=== PATIENT | female | born 1945 | race Caucasian/White ===

== ENCOUNTER 2020-05-25 13:54 | Outpatient (REF) | payer MEDICARE, SELFPAY ==
--- NOTE | 2020-05-25 | MM_ITS ---
EXAMINATION: MM SCREENING DIGITAL BREAST TOMOSYNTHESIS, BILATERAL CLINICAL INFORMATION: Screening. Asymptomatic. Family history breast cancer (mother, age 60). Personal history benign left breast biopsy 2014. The lifetime risk of breast cancer based on the Tyrer-Cuzick Model is 7%. COMPARISON: Mammography: 02/12/2019, 02/02/2018, 08/09/2016 TECHNIQUE: Digital breast tomosynthesis is performed in both the craniocaudal and mediolateral oblique views along with computer-aided detection (CAD). Synthesized 2D images are generated from the tomosynthesis. FINDINGS: There are scattered areas of fibroglandular density (ACR BI-RADS breast composition Category b). There is biopsy clip marker left breast mid 3:00 position. Parenchymal pattern borders on predominantly fatty. There is no developing density or interval mass or architectural abnormality. There are scattered punctate and vascular calcifications in each breast. Some digital processing artifact is also seen central left breast on synthesized MLO view without correlate on tomography or grouped calcifications on CC projection. The axilla and skin contours are unremarkable. MM/MM tomosynthesis screening BI IMPRESSION: No significant changes from prior studies. ASSESSMENT: BI-RADS 2: Benign RECOMMENDATION: Routine annual mammography screening. This patient's information was entered into a reminder system with a target due date for their next mammogram.
== END 2020-05-25 13:55 | disposition home or self-care (01) ==
LOC: HO.MAMMO 13:54
PROVIDERS: Visit Provider Internal Medicine Geriatric Medicine
DX: Z12.31 Encounter for screening mammogram for malignant neoplasm of breast (principal)
CPT/HCPCS: 77063; 77067

== ENCOUNTER 2020-09-17 10:48 | Outpatient (REF) | payer MEDICARE, SELFPAY ==
--- NOTE | ~2020-09-17 | XR_ITS ---
EXAMINATION: XR HAND, RIGHT CLINICAL INFORMATION: Right hand pain COMPARISON: February 10, 2020 TECHNIQUE: PA, lateral, and oblique views of the right hand. FINDINGS: There is no evidence of acute fracture or dislocation of the right hand. No significant degenerative changes seen with joint spaces being maintained. No soft tissue swelling. No radiopaque foreign bodies. No erosive changes appreciated. XR/XR hand RT min 3V IMPRESSION: No significant bony abnormality of the right hand identified.
[2020-09-17 11:59] LABS: MANUAL DIFF FLAG NO
[2020-09-17 12:01] LABS: Basophils Absolute Auto 0.1 X10*3/uL (0.0-0.2); Basophils Percent Auto 0.8 % (0-2); Eosinophils Absolute Auto 0.1 X10*3/uL (0.0-0.4); Eosinophils Percent Auto 1.7 % (0-4); Hemoglobin 13.2 g/dl (12.0-16.0); Imm Gran Abs Auto 0.01 X10*3/uL (0.00-0.03); Imm Gran Pct Auto 0.2 % (0.0-0.4); Lymphocytes Absolute Auto 2.1 X10*3/uL (1.2-4.9); Mean Corpuscular Hemoglobin 30.1 pg (27.0-33.0); Mean Corpuscular Volume 91.3 fL (80-98); Mean Platelet Volume 9.9 fL (9.4-12.3); Monocytes Absolute Auto 0.5 X10*3/uL (0.1-1.2); Monocytes Percent Auto 8.3 % (2-11); Neutrophils Absolute Auto 3.6 X10*3/uL (2.0-8.3); Platelet Count 209 X10*3/uL (160-400); Red Blood Count 4.38 X10*6/uL (4.20-5.50); Red Cell Distribution Width 12.9 % (11.0-16.0); White Blood Count 6.4 X10*3/uL (4.8-10.8)
[2020-09-17 12:31] LABS: Alanine Aminotransferase 46 U/L (0-31); Albumin Level 4.5 g/dL (3.5-5.0); Alkaline Phosphatase 92 U/L (39-117); Anion Gap 14 (12-20); Aspartate Amino Transferase 37 U/L (5-31); Bilirubin Total 0.4 mg/dL (0.0-1.0); Blood Urea Nitrogen 25 mg/dL (9-16); C Reactive Protein 0.14 mg/dL (< or = 0.50); Calcium 8.8 mg/dL (8.4-10.2); Carbon Dioxide 27 mmol/L (22-29); Chloride 99 mmol/L (96-108); Estimated Glomerular Filt Rate 59; Glucose Random 148 mg/dL (60-115); Potassium 4.3 mmol/L (3.3-5.1); Sodium 136 mmol/L (135-145); Total Protein 7.4 g/dL (6.5-8.0)
[2020-09-17 12:48] LABS: Thyroid Stimulating Hormone 3.13 uIU/mL (0.32-4.0)
[2020-09-17 13:01] LABS: Rheumatoid Factor < 15.0 IU/mL (<15.0)
[2020-09-17 13:17] LABS: Erythrocyte Sedimentation Rate 16 MM/HR (0-20)
[2020-09-18 16:11] LABS: Cyclic Citrullinated Peptide <16 UNITS
== END 2020-09-17 10:49 | disposition home or self-care (01) ==
LOC: HO.LAB 10:48
PROVIDERS: PCP Internal Medicine Geriatric Medicine; Visit Provider Student in an Organized Health Care Education/Training Program
DX: M79.641 Pain in right hand (principal)
CPT/HCPCS: 36415; 73130; 80053; 84443; 85025; 85652; 86140; 86200; 86431; 99202

== ENCOUNTER → 2020-12-17 13:29 | Outpatient (BNVA) | payer MEDICARE, SELFPAY | PROVIDERS: PCP Internal Medicine Geriatric Medicine; Visit Provider Student in an Organized Health Care Education/Training Program | DX: M79.641 Pain in right hand (principal); Z79.899 Other long term (current) drug therapy | CPT/HCPCS: 99212 ==

== ENCOUNTER 2023-02-16 | Outpatient (REF) | payer MEDICARE, SELFPAY | END 2023-02-16 00:01 | disposition home or self-care (01) | LOC: HO.LNP | PROVIDERS: Visit Provider Student in an Organized Health Care Education/Training Program | DX: R19.5 Other fecal abnormalities (principal) | CPT/HCPCS: 82274 ==

== ENCOUNTER 2023-03-23 12:41 | Outpatient (REF) | payer OTHER, SELFPAY ==
--- NOTE | ~2023-03-23 | CT_ITS ---
EXAMINATION: CT ABDOMEN AND PELVIS WITH CONTRAST CLINICAL INFORMATION: Blood in stools. COMPARISON: None available. TECHNIQUE: Multidetector volumetric images were obtained from the superior aspect of the liver through the pubic symphysis following administration 85 mL of Omnipaque 350 intravenous contrast. Sagittal and coronal reformatted images were obtained on the technologist's workstation. Oral contrast: Yes This CT examination was performed using dose optimization techniques as appropriate, variously including the following: *Automated exposure control *Adjustment of mA and/or kV according to patient size (this includes techniques or standardized protocols for targeted exams where dose is matched to indication/reason for exam; i.e. extremities or head) *Use of iterative reconstruction technique DLP: 413 mGy-cm FINDINGS: LUNG BASES: The visualized lung bases are unremarkable. LIVER, GALLBLADDER, AND BILIARY TREE: Steatotic liver. No liver mass or intrahepatic ductal dilatation. Cholecystectomy with compensatory dilation of the common bile duct. No choledocholithiasis seen. PANCREAS: No discrete pancreatic mass. No ductal dilatation. SPLEEN: Unremarkable. ADRENAL GLANDS: No adrenal mass. KIDNEYS AND URETERS: The kidneys are normal in size, shape, and attenuation. No hydronephrosis, hydroureter, or calculi seen. No perinephric stranding. There is a simple exophytic cyst from the lower pole left kidney. No follow-up imaging is recommended. BLADDER: Unremarkable. GASTROINTESTINAL TRACT: The small bowel is normal in caliber. No focal bowel wall thickening. No mesenteric mass or fluid. The appendix appears normal. The large bowel is normal in caliber. There is no focal bowel wall thickening. No diverticular disease demonstrated. No discrete bowel mass. ABDOMINAL WALL: No significant hernia is appreciated. LYMPH NODES: No adenopathy. VASCULAR: Mild atherosclerosis. No aortic aneurysm. PELVIC VISCERA: Unremarkable. OSSEOUS STRUCTURES: Mild degenerative changes in the spine. CT/CT abdomen pelvis w IV con IMPRESSION: No explanation for blood in stool. Recommend GI referral for consideration of endoscopy and colonoscopy. Fleischner guidelines were followed.
[2023-03-23] MEDS: iohexoL 350 MG/ML 100 ML INFUS..BTL IV (15:01)
[2023-03-23] MEDS: Barium Sulfate Oral (Mocha) 450 ML ORAL.SUSP 900 ML PO (15:39)
== END 2023-03-23 12:42 | disposition home or self-care (01) ==
LOC: HO.CT 12:41
PROVIDERS: PCP Internal Medicine Geriatric Medicine; Visit Provider Student in an Organized Health Care Education/Training Program
DX: R19.5 Other fecal abnormalities (principal)
CPT/HCPCS: 74177; Q9967

== ENCOUNTER 2023-05-30 09:36 | Outpatient (REF) | payer OTHER, SELFPAY ==
[2023-05-30 11:49] LABS: Anion Gap 17 (12-20); Blood Urea Nitrogen 18 mg/dL (9-16); Calcium 9.9 mg/dL (8.4-10.2); Carbon Dioxide 24 mmol/L (22-29); Chloride 101 mmol/L (96-108); Estimated Glomerular Filt Rate 54; Glucose Random 171 mg/dL (60-115); Potassium 3.8 mmol/L (3.3-5.1); Sodium 138 mmol/L (135-145)
== END 2023-05-30 09:37 | disposition home or self-care (01) ==
LOC: HO.HHCL 09:36
PROVIDERS: Visit Provider Internal Medicine Geriatric Medicine
DX: E11.69 Type 2 diabetes mellitus with other specified complication (principal); K57.33 Diverticulitis of large intestine without perforation or abscess with bleeding; I10 Essential (primary) hypertension
CPT/HCPCS: 36415; 80048

== ENCOUNTER 2024-01-01 10:28 | Outpatient (REF) | payer OTHER, SELFPAY ==
[2024-01-01 12:34] LABS: Alanine Aminotransferase 50 U/L (0-31); Albumin Level 4.1 g/dL (3.5-5.0); Alkaline Phosphatase 123 U/L (39-117); Anion Gap 12 (12-20); Aspartate Amino Transferase 36 U/L (5-31); Bilirubin Total 0.2 mg/dL (0.0-1.0); Blood Urea Nitrogen 19 mg/dL (9-16); Calcium 9.6 mg/dL (8.4-10.2); Carbon Dioxide 28 mmol/L (22-29); Chloride 104 mmol/L (96-108); Cholesterol 141 mg/dL (<200); Estimated Glomerular Filt Rate 55; Glucose Random 181 mg/dL (60-115); HDL Cholesterol 51 mg/dL (>40); LDL Cholesterol Calculated 77 mg/dL (<100); Potassium 4.2 mmol/L (3.3-5.1); Sodium 140 mmol/L (135-145); Total Protein 7.4 g/dL (6.5-8.0); Triglycerides 67 mg/dL (<150)
[2024-01-01 12:38] LABS: Reflex LDLD? No
[2024-01-01 12:40] LABS: TSH reflex Free T4 3.33 uIU/mL (0.32-4.0); Vitamin D 25-OH Total 43.5 ng/mL (>30)
== END 2024-01-01 10:29 | disposition home or self-care (01) ==
LOC: HO.HHCL 10:28
PROVIDERS: Visit Provider Internal Medicine
DX: E11.69 Type 2 diabetes mellitus with other specified complication (principal); Z91.89 Other specified personal risk factors, not elsewhere classified
CPT/HCPCS: 36415; 80053; 80061; 82306; 84443

== ENCOUNTER 2024-02-26 11:13 | Outpatient (REF) | payer OTHER, SELFPAY ==
[2024-02-26 14:07] LABS: Alanine Aminotransferase 70 U/L (0-31); Albumin Level 4.4 g/dL (3.5-5.0); Alkaline Phosphatase 98 U/L (39-117); Aspartate Amino Transferase 50 U/L (5-31); Bilirubin Direct 0.1 mg/dL (0.0-0.5); Bilirubin Total 0.3 mg/dL (0.0-1.0); Total Protein 7.9 g/dL (6.5-8.0)
[2024-02-27 04:32] LABS: HBS Num1 0.66 mIU/mL (0-7.99); HBsAGNum1 0.29 S/CO (0.00-0.99); Hepatitis B Surface Antigen Negative (Negative); ~HepC Num1 0.11 S/CO (0.00-0.79); ~Hepatitis B Surface Antibody NONREACTIVE (Nonreactive); ~Hepatitis C Antibody Nonreactive (Nonreactive)
[2024-02-27 04:36] LABS: Hepatitis A Antibody IgG REACTIVE (Nonreactive); ~Hepatitis A Antibody IgG 11.49 S/CO (0.00-0.99)
== END 2024-02-26 11:14 | disposition home or self-care (01) ==
LOC: HO.HHCL 11:13
PROVIDERS: Visit Provider Internal Medicine Geriatric Medicine
DX: E11.69 Type 2 diabetes mellitus with other specified complication (principal); F41.9 Anxiety disorder, unspecified; R74.01 Elevation of levels of liver transaminase levels
CPT/HCPCS: 36415; 80076; 86706; 86708; 86803; 87340

== ENCOUNTER 2024-09-30 10:39 | Outpatient (REF) | payer OTHER, SELFPAY ==
[2024-09-30 11:43] LABS: MANUAL DIFF FLAG NO
[2024-09-30 11:52] LABS: Basophils Absolute Auto 0.1 X10*3/uL (0.0-0.2); Basophils Percent Auto 1.1 % (0-2); Eosinophils Absolute Auto 0.2 X10*3/uL (0.0-0.4); Hematocrit 38.2 % (37.0-47.0); Hemoglobin 12.5 g/dl (12.0-16.0); Imm Gran Abs Auto 0.02 X10*3/uL (0.00-0.03); Imm Gran Pct Auto 0.4 % (0.0-0.4); Lymphocytes Absolute Auto 2.1 X10*3/uL (1.2-4.9); Lymphocytes Percent Auto 37.1 % (20-40); Mean Corpuscular HGB Conc 32.7 g/dl (31.0-35.0); Mean Corpuscular Hemoglobin 30.9 pg (27.0-33.0); Mean Corpuscular Volume 94.6 fL (80.0-98.0); Mean Platelet Volume 10.1 fL (9.4-12.3); Monocytes Absolute Auto 0.5 X10*3/uL (0.1-1.2); Monocytes Percent Auto 9.3 % (2-11); Neutrophils Absolute Auto 2.7 x10*3/uL (2.0-8.3); Neutrophils Percent Auto 48.1 % (45-73); Platelet Count 207 X10*3/uL (160-400); Red Blood Count 4.04 X10*6/uL (4.20-5.50); Red Cell Distribution Width 12.7 % (11.0-16.0); White Blood Count 5.7 X10*3/uL (4.8-10.8)
[2024-09-30 12:09] LABS: Alanine Aminotransferase 57 U/L (0-31); Albumin Level 3.9 g/dL (3.5-5.0); Alkaline Phosphatase 94 U/L (39-117); Anion Gap 15 (12-20); Aspartate Amino Transferase 40 U/L (5-31); Bilirubin Total 0.3 mg/dL (0.0-1.0); Blood Urea Nitrogen 23 mg/dL (9-16); Calcium 8.8 mg/dL (8.4-10.2); Carbon Dioxide 25 mmol/L (22-29); Chloride 105 mmol/L (96-108); Cholesterol 140 mg/dL (<200); Estimated Glomerular Filt Rate 56; Glucose Random 161 mg/dL (60-115); HDL Cholesterol 48 mg/dL (>40); LDL Cholesterol Calculated 73 mg/dL (<100); Potassium 4.1 mmol/L (3.3-5.1); Sodium 141 mmol/L (135-145); Total Protein 7.2 g/dL (6.5-8.0); Triglycerides 97 mg/dL (<150)
[2024-09-30 12:23] LABS: Microalbum/Creatinine Ratio Ur 6.2 ug/mg cr (<30)
--- OUTSIDE RECORDS SUMMARY | 2024-09-30 12:28 | XMS_ITS ---
Author Name MS. Prisca Berman APRN Address [address] [place] [address] Phone [phone] [facility] Care Team Providers Care Chemical Research Worker Name Role Phone Jennifer Berman Unavailable [phone] Unavailable Unavailable Unavailable Reason for Referral Not Available Allergies, adverse reactions, alerts No known allergies History of medication use Medication Class Instructions Start Date End Date Vitamin D3 25 MCG (1000 UT) Tab No Data Available 2022-12-28 No Data Available Diclofenac Sodium 1 % Gel No Data Available 2023-01-10 No Data Available Meclizine 25 mg Tab No Data Available 2023-02-03 No Data Available Amoxicillin-Pot Clavulanate 875/125 mg Tab TAKE 1 TABLET BY MOUTH TWICE DAILY FOR 7 DAYS 2023-02-16 No Data Available Omeprazole 40 mg Cap delayed rel No Data Available 2023-04-28 No Data Available Losartan Potassium-HCTZ 100/25 mg Tab No Data Available 2023-04-28 No Data Available Trulicity 3 mg/0.5ML Solution Pen-injector Subcutaneous 3 mg subcutaneously once per week 2023-06-15 No Data Available metFORMIN 1000 mg Tab 1 tablet orally twice daily 2022 No Data Available Glucerna Shake - One serving twice per day. 2023-06-15 No Data Available Tylenol Extra Strength 500 mg Tab 2 tablets orally one time TID PRN pain 2023-06-15 No Data Available Fish Oil 1000 mg Cap 1 capsule by mouth daily No Data Available Problem List Problem Status Onset Date Resolved Date Vertigo Active 2023-06-14 N/A GERD (gastroesophageal reflux disease) Active 22-06-15 N/A Type 2 diabetes mellitus wit h diabetic peripheral angiopathy without gangrene; Type 2 diabetes mellitus with hyperglycemia Active 2023-06-14 N/A Essential hypertension Active 2023-06-14 N/A Major depression in remission Active 2023-06-14 N/A Osteoarthritis Active 2023-06-15 N/A Encounters Encounters Type Facility Date of Service Diagnosis/Co mplaint No Data Available [facility] [place] 06[facility]/2023 Type 2 diabetes w diabetic peripheral angiopath w/o gangreneType 2 diabetes mellitus with hyperglycemiaEssential (primary) hypertensionDizziness and giddinessGastro-esophageal reflux disease without esophagitisMajor depressive disorder, single episode, in full remissionUnspecified osteoarthritis, unspecified siteLow back pain, unspecifiedOther chronic pain No Data Available [facility] [place] 06/15/2023 No Data Available [facility] [place]/15[place]2023 No Data Available [facility] [place] 06/15/2023 No Data Available [facility] [place]/15[place]2023 No Data Available [facility] [place] 06/[place]2023 No Data Available [facility] [place]/15[place]2023 No Data Available [facility] [place] 06/15[place]2023 No Data Available [facility] [place] 06/15/2023 Estab. patient 20-29min; 1 stable chronic or 2 minor; add add modifier 95 for video, modifier 93 for phone [facility] [place] 06[place]26/2023 Type 2 diabetes w diabetic peripheral angiopath w/o gangreneType 2 diabetes mellitus with hyperglycemiaEssential (primary) hypertensionDizziness and giddinessGastro-esophageal reflux disease without esophagitisMajor depressive disorder, single episode, in full remissionUnspecified osteoarthritis, unspecified siteLow back pain, unspecifiedOther chronic pain Estab. patient 20-29min; 1 stable chronic or 2 minor; add add modifier 95 for video, modifier 93 for phone [facility] [place] 06/26/2023 Estab. patient 20-29min; 1 stable chronic or 2 minor; add add modifier 95 for video, modifier 93 for phone [facility] [place] 06/26/2023 Estab. patient 20-29min; 1 stable chronic or 2 minor; add add modifier 95 for video, modifier [address] [facility], ([place]) 06/26/2023 Estab. patient 20-29min; 1 stable chronic or 2 minor; add add modifier 95 for video, modifier [address] [facility], ([place]) 06/26/2023 Vital Signs Date of Collection Vitals 2023-06-15 06:17:44 Height - 152.4 cmWei ght - 54.43 kgBody Mass Index (BMI) - 23.44 kg/m2 2023-06-26 08:34:20 Weight - 54.43 kgBod y Mass Index (BMI) - 23.44 kg/m2Pain Scale - 3.0 {score} Social History Social History Social History Observation Description Effec tive Time Current Smoking Status Never smoker 3 Sex Female History of Procedures Procedures Service Procedure code Service date Servicing provider Phone# No Data Available [id number] 2023-06-15 No Data Available No Data Available Pain Assessment - NO pain present (1126F) 1126F 2023-06-15 No Data Available No Data A vailable Medication List Documented (1159F) 1159F 2023-06-15 No Data Available No Data Valerie ilable Medication Review by prescribing provider or pharmacist documented (1160F) 1160F 2023-06-15 No Data Available No Data Valerie ilable Advance Care Directive Advance care planning discussion documented in the medical record (1158F) 1158F 2023-06-15 No Data Available No Data Availa ble BMI obtained (3008F) 3008F 2023-06-15 No Data Availab le No Data Available Advance care planning discussed and documented in the medical record ? beneficiary/patient did not wish to or was unable to provide an advance care plan or name a surrogate decision-maker. (1124F) 1124F 2023-06-15 No Data Available No Data Availa ble Pain Assessment - Pain Documented on a Pain Scale (1125F) 1125F 2023-06-15 No Data Available No Data Valerie ilable Functional Status Assessed (1170F) 1170F 2023-06-15 No Data Available No Data Avail able Estab. patient 20-29min; 1 stable chronic or 2 minor; add add modifier 95 for video, modifier 93 for phone [id number] 2023-06-26 No Data Available No Data Availa ble Pain Assessment - Pain Documented on a Pain Scale (1125F) 1125F 2023-06-26 No Data Available No Data Valerie ilable BMI obtained (3008F) 3008F 2023-06-26 No Data Availab le No Data Available Medication List Documented (1159F) 1159F 2023-06-26 No Data Available No Data Valerie ilable Functional Status Assessed (1170F) 1170F 2023-06-26 No Data Available No Data Avail able Functional Status Functional Category Effective Dates Daughter assists with cookin g, cleaning, laundry, showering and dressing. Pt reports using assistive device of cane. 2023-06-15 Mental Status Status Date AOx3 2023-06-15 Assessments Date of Service Assessments 2023-06-15 06:17:44 Type 2 diabetes hailee itus with diabetic peripheral angiopathy without gangrene; Type 2 diabetes mellitus with hyperglycemiaEssential hypertensionVertigoGERD (gastroesophageal reflux disease)Major depression in remissionOsteoarthritis 2023-06-26 08:34:20 <Fully document all Diagnosis>Type 2 diabetes mellitus with diabetic peripheral angiopathy without gangrene; Type 2 diabetes mellitus with hyperglycemiaEssential hypertensionVertigoGERD (gastroesophageal reflux disease)Major depression in remissionOsteoarthritis Plan of Care Date of Service Plans 2023-06-15 06:17:44 Pain Assessment - Pa in Documented (1125F)Medication Review by prescribing provider or pharmacist documented (1160F)Medication List Documented (1159F)Functional Status Assessed (1170F)Advance Care Directive Advance care planning discussion documented in the medical record (1158F)BMI obtained (3008F)Televideo new patient,40-59min; chronic exacerbation, 2 stable chronic or 1 acute illness add modifier 95Advance care planning discussed and documented ? advance care plan or surrogate decision-maker was documented in the medical record. (1123F)Advance care planning discussed and documented in the medical record ? beneficiary/patient did not wish to or was unable to provide an advance care plan or name a surrogate decision-maker. (1124F)Continue to see PCP. Follow-up with [facility] as needed for any acute or disease education needs that may arise.StableMetformin, Trulicity, Jardiance Low carb diet, exercise as tolerable, monitor BLE routinely, monitor BG routinely, and continue f/u care and monitoring with PCP.StableLosartanMonitor BP routinely, Low salt diet, exercise as tolerable and continue f/u care and monitoring with PCP.MeclizineOmeprazoleStableDenies medication management Denies SI/HIContinue taking medication, coping mechanisms, and continue f/u care with PCP.TylenolROM exercises, continue taking medication and continue f/u care with PCP. 2023-06-26 08:34:20 Televideo 20-29min; 1 stable chronic or 2 minor; add modifier 95Continue to see PCP. Follow-up with [facility] as needed for any acute or disease education needs that may arise 20/02.StableMetformin, Trulicity, Jardiance Low carb diet, exercise as tolerable, monitor BLE routinely, monitor BG routinely, and continue f/u care and monitoring with PCP.StableLosartanMonitor BP routinely, Low salt diet, exercise as tolerable and continue f/u care and monitoring with PCP.MeclizineOmeprazoleStableDenies medication management Denies SI/HIContinue taking medication, coping mechanisms, and continue f/u care with PCP.TylenolROM exercises, continue taking medication and continue f/u care with PCP.at risk for fallsFall prevention TIPS: Wear sensible shoes. Remove home hazards (Get rid of all rugs/mats in your home). Light up your living space (keep a flash light next to your bed for night time). Use assistive devices. Goals Date Goal 2023-06-15 Remember to contact EMS if developing emergent symptoms. 2023-06-15 Continue taking medi cations as prescribed and f/u care and monitoring with PCP every 3-6 months. 2023-06-15 Contact us if develo ping s/sx of urgent HTN, HHS, DKA, worsening vertigo, increase pain, or worsening depression, SI/HI. Health Concerns Date Concern 2023-06-26 Patient seen using a udio and video.Patient/Guardian agreed to visit via telehealth.Time spent in visit: 2023-06-26 Most recent hospital stay(s) or ER visit(s) and precipitating factors: none in the last month 2023-06-26 HEDIS review: done
--- OUTSIDE RECORDS SUMMARY | 2024-09-30 12:28 | XMS_ITS | Encounter Summary ---
Author Organization [employer] Address [address] [place] [address] Care Team Providers Care Property Management Intern Name Role Phone Name, Cody DOWNEY Primary Care Provider [phone] Encounter Details Date Type Department Care Team ([facility] st Contact Info) Description 07/15/2024 Telephone [facility] [address] [place], [place] [phone] Name, MD Cody [address] [place], [place] [id number] Social History Tobacco Use Types Packs/Day Years Used Date Smoking Tobacco: Never Passive Smoke Exposure: Never Smokeless Tobacco: Never Alcohol Use Standard Drinks/Week Comments Never 0 (1 standard drink = 0.6 oz pur e alcohol) Alcohol Answer Date Recorded Frequency of Alcohol Consumption Not on file 02/26/2024 Average Number of Drinks Not on file 024 Frequency of Binge Drinking Not on file 01/29 Score 0 02/26/2024 Depression Answer Date Recorded Patient Health Questionnaire-9 Score 24 2023 Patient Health Questionnaire-9 Score 24 2023 Last PHQ-9: Questionnaire Data Not on file 0 2023 Housing Stability Answer Date Recorded What is your housing situation today? I have ronna camara 02/26/[address] you li ve. Do you have problems with any of the following? None of the above 02/26/2024 Food Insecurity Answer Date Recorded Within the past 12 months, y ou worried that your food would run out before you got money to buy more: Never True 02/26/2024 Within the past 12 months,th e food you bought just didn't last and you didn't have enough money to get more: Never True Transportation Answer Date Recorded In the past 12 months, has l ack of transportation kept you from medical appts, meetings, work or from getting things needed for daily living? No 02/26/2024 Utilities Answer Date Recorded In the past 12 months, has t he electric, gas, oil or water company threatened to shut off services in your home? No 02/26/2024 Depression Answer Date Recorded Patient Health Questionnaire-2 Score 6 2023 Internet Access Answer Date Recorded Internet Access Q1 No 04/01/2024 Internet Access Q2 I do not want or need it 08/2023 Comments Unknown Sex and Gender Information Value Date Recorded Sex Assigned at Female 05/30/2022 10:29 AM EDT Legal Sex Female 10:29 AM EDT Gender Identity Female 05/30/2022 10:29 AM EDT Sexual Orientation Straight 05/30/2022 10 :29 AM EDT documented as of this encounter Plan of Treatment Not on file documented as of this encounter Visit Diagnoses Not on filedocumented in this encounter Additional Health Concerns Assessment Noted Time PHQ-9 Depression Total Score: 24 024 9:20 AM EDT documented as of this encounter Care Teams Property Management Intern Relationship Specialty Start Date End Date Name, MD Cody [address] [place] [address] PCP - General Family Medicine 07/31/18 documented as of this encounter
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
--- OUTSIDE RECORDS SUMMARY | 2024-09-30 12:28 | XMS_ITS | Encounter Summary ---
Author Organization [facility] Address [address] [place] [address] Care Team Providers Care Watch Repair Person Name Role Phone Name, Cody DOWNEY Primary Care Provider [phone] Reason for Visit * Consultation (Routine) - Authorized Specialty Diagnoses / Procedures Referred By Van nolan Referred To Contact Pharmacy Diagnoses Type 2 diabetes mellitus with other specified complication, without long-term current use of insulin (CMS/HCC) Name, MD Cody [address] [place] [address] Phone: tel: fax: Referral ID Status Reason Start Date Expiration Date Visits Requested Visits Authorized [id number] Authorized Continuity of Care 09/18/2024 09/18/2025 6 6 Encounter Details Date Type Department Care Team (Late st Contact Info) Description 09/24/2024 3:00 PM EST Telemedicine [facility] MEDICINE [address] [place], [place] [phone] Loretta Neri, PharmD [address] [place], [place] [phone] Type 2 diabetes mellitus with other specified complication, without long-term current use of insulin (CMS/HCC) (Primary Dx); Essential hypertension; Hypercholesterolemia Social History Tobacco Use Types Packs/Day Years [...] AM EDT documented as of this encounter Progress Notes * Loretta Neri PharmD - 09/24/2024 3:00 PM EST Pharmacy Consult Visit Type: MTM Visit Pharmacist: Loretta Neri PharmD Referral Diagnosis: E11.69 (ICD-10-CM) - Type 2 diabetes mellitus with other specified complication, without long-term current use of insulin (CMS/HCC) Referral Expiration: 09/18/2025 Referring Provider: Cody Way MD Pharmacy Recommendations for Provider: Please consider reassessing hepatic function panel, AST/ALT were elevated 01/2024, and the patient denies statin use for several years Background/ Visit Intake Mary Rich is a 78 y.o. patient here for a new patient visit. Visit completed over the phone. Allergies: is allergic to carbamazepine and paroxetine. Preferred Pharmacy: [place] [id number] [facility] [address] [id number] Medbox: No. Assessment & Plan Adherence: History: Medication Reconciliation: Denies use of the following medications that are active in [facility] medlist: Atorvastatin: patient denies use, reports that it has been years since they have taken the medication (see ASCVD risk and hypercholesterolemia section) Diclofenac gel: no fill history, patient denies use and reports that it did not work Levoceterizine: no fill history, patient denies use Witch fidelina-glycerin: no fill history, patient denies use OTC medication, vitamin, supplement use: reports Fish oil 200 mg by mouth once daily Vitamin B12 2500 mg 1 tablet by mouth once daily Magnesium 200 mg by mouth once daily Cetrizine 10 mg by mouth once daily Adherence: Medication Organization: Takes from vials Missed doses: Denies missed doses, reports assistance from VNA with taking medications Read/Write: Yes, in [place] Of [place] Denies interest in medbox program Patient requested a refill for meclizine Goals of therapy: Improve adherence & minimize missed doses (<2 missed doses/week) Recommendations/Monitoring: Pharmacy updated medlist in [facility] to match patients current medication use Pharmacy contacted [place] pharmacy, agreeable to refill the prescription for meclizine for upcoming delivery Diabetes Pharmacologic Therapy: Jardiance 10 mg by mouth once daily Metformin 1000 mg by mouth twice daily Mounjaro 5 mg subcutaneously once weekly History: Per PCP office visit note (09/18/2024), patient is experiencing side effects with Trulicity and will be switched to Mounjaro Per note A1C above goal, however patient admits to ocassional noncompliance to oral medications Patient confirmed receiving Mounjaro yesterday, however has not yet started therapy SMBG: Patient reports testing checking BG every other day because they do not like to prick their fingers. Reports an average BG of 160 mg/dL Lab monitoring: Lab Results Component Value Date K 4.2 01/01/2024 NA 140 01/01/2024 CREATININE 0.98 01/01/2024 EGFR 55 01/01/2024 HGBA1C 8.0 (A) 09/18/2024 HGBA1C 8.0 (A) 12/28/2023 HGBA1C 8.2 (A) 09/05/2023 Additional recommendations per ADA: On ACEI/ARB: Yes On Aspirin: No (risk> benefit per age) On Statin: No (patient denies use) Dental exam in the past 6 months: Yes, reports last exam 3 months ago Eye Exam in the past 12 months: No, reports upcoming appointment in November Goals of therapy: Per the ADA Standards of Medical Care in Diabetes - 2023 Achieve A1c of <7% while also minimizing episodes of hypoBG (<70 mg/dL) Plan: Metformin package insert recommends Vitamin B12 monitoring every 2-3 yrs. Pharmacist ordered B12 lab via standing order. Patient agreeable to complete pending Urine microalbumin next week Future consideration: can consider increasing Jardiance from 10 mg to 25 mg once daily, followed byA1C in 3 months Education: Discussed role of A1c monitoring, A1c and SMBG goals Discussed ways to minimize pain when pricking fingers such as using the sides and rotating fingers.Patient verbalized understanding Hypertension: Pharmacologic Therapy: Losartan-hydrochlorothiazide 100-25 mg by mouth once daily History: Patient reports that their VNA checks their BP, unable to check during today's televisit Pertinent negatives include chest pain, head ache, blurry vision. Recent Blood Pressure values: BP Readings from Last 4 Encounters: 09/18/24 (!) 140/81 02/26/24 131/79 12/28/23 136/76 12/05/23 112/75 Pulse Readings from Last 4 Encounters: 09/18/24 81 02/26/24 74 12/28/23 88 12/05/23 86 Lab monitoring Lab Results Component Value Date NA 140 01/01/2024 K 4.2 01/01/2024 CREATININE 0.98 01/01/2024 EGFR 55 01/01/2024 Goals of Therapy per JNC 8: Achieve & maintain BP <140/90mmHg Plan: Future consideration: can consider initiation of amlodipine 2.5 mg once daily if BP remains above goal of <140/90 mmHg ASCVD Risk and hypercholesteremia Pharmacologic Therapy: None History: Patient denies current use of atorvastatin, reports that it has been years since they last took the medication Denies knowledge as to why if it was discontinued and cannot recall ADRIAN Patient is agreeable to restarting the medication to better manage cholesterol levels if needed Lab monitoring: Lab Results Component Value Date CHOL 141 01/01/2024 LDLCHOLCAL 77 01/01/2024 HDL 51 01/01/2024 TRIG 67 01/01/2024 AST 50 (H) 02/26/2024 ALT 70 (H) 02/26/2024 ALKPHOS 102 09/09/2022 The 10-year ASCVD risk score (Juan José PADGETT, et al., 2019) is: 53.7% Values used to calculate the score: Age: 78 years Sex: Female Is Non- : No Diabetic: Yes Tobacco smoker: No Systolic Blood Pressure: 140 mmHg Is BP treated: Yes HDL Cholesterol: 51 mg/dL Total Cholesterol: 141 mg/dL Goals of Therapy: ACC/AHA 2018 Cholesterol Guidelines: Ensure evidence based and safe use of medications for primary prevention of ASCVD. Plan: Please consider reassessing hepatic function panel, AST/ALT were elevated 01/2024, and the patient denies statin use for several years Future consideration: If AST/ALT is < 3x ULN, can consider initiation of atorvastatin 10 mg, followed by FLP + LFT in 4-12 weeks 2024 ADA standards of care recommend to consider moderate intensity statin therapy for primary prevention in adults age > 75 years with T2DM Patient agreeable to complete pending lipid panel next week Education Indication of statin therapy and monitoring/ADRIAN associated with use Immunizations History: Immunization History Administered Date(s) Administered Influenza High-dose Quadrivalent Preservative Free 05/03/2021, 05/12/2022, 05/30/2023 Influenza Quadrivalent Adjuvanted 05/21/2020 Influenza injectable quadrivalent IIV4 with preservative 04/06/2017, 03/14/2018 Influenza injectable quadrivalent preservative free 04/17/2019 Influenza, High Dose Seasonal, Preservative Free 03/07/2017, 03/26/2018 Influenza, IIV3, injectable 03/18/2011, 05/03/2012 Influenza, seasonal, injectable, preservative free 09/18/2024 Influenza, trivalent, adjuvanted 04/26/2016, 03/25/2019 Summer SARS-CoV-2 Vaccination 10/26/2020 Pfizer Covid-19 Vaccine 12+ 07/27/2021, 12/17/2021 Pfizer Covid-19 Vaccine 12+ Bivalent 05/12/2022 Pfizer Covid-19 Vaccine 12+ adele-sucrose (Russ Cap) 12/17/2021 Pneumococcal Conjugate PCV 13 12/10/2015 Pneumococcal Conjugate PCV 20 01/02/2024 Pneumococcal Polysaccharide PPSV23 06/09/2017 RSV Bivalent 01/02/2024 TD (adult), 2 Lf tetanus toxoid, preservative free, adsorbed 06/09/2017 Zoster, Recombinant 12/23/2020, 03/31/2021 Zoster, live 04/24/2013 Goals of therapy: Ensure patient is up to date per the CDC Adult Immunization Schedule. Assessment/Plan: COVID-19 [id number] vaccine: Due Hepatitis A series: Not indicated (HepA antibody IgG reactive 02/26/2024) Hepatitis B series (Age 60+ with risk factors): Due (hepatitis B surface antibody and antigen nonreactive 02/26/2024) Plan: Patient agreeable to receive indicated vaccinations at [facility] walk in vaccine clinic next week Education: Indication of all recommended vaccines Patient Action Plan At this time patient does not have a need to follow-up with the MTM Program. If further medication therapy management is needed, please consider referring patient back. Thank you for your care in this patient. Continue to adhere to medication Monitor blood sugar and blood pressure as directed Complete pending labs (vitamin B12, urine albumin, lipid panel, CMP, CBC) Receive all recommended vaccinations Attend follow up appointments documented in this encounter Plan of Treatment Scheduled Orders Name Type Priority Associated Diagnoses Orde r Schedule Vitamin B12 Lab Routine Type 2 diabetes mellitus with other specified complication, without long-term current use of insulin ([facility]) Expected: 10/01/2024 (Approximate), Expires: 09/24/2025 documented as of this encounter Visit Diagnoses Diagnosis Type 2 diabetes mellitus with other specified complication, without long-term current use of insulin (CMS/[facility])- Primary Essential hypertension Unspecified essential hypertension Hypercholesterolemia Pure hypercholesterolemia documented in this encounter Additional Health Concerns Assessment Noted Time PHQ-9 Depression Total Score: 12 09/18/ 025 4:18 PM EST documented as of this encounter Care Teams Watch Repair Person Relationship Specialty Start Date End Date Name, MD Cody [address] [place] [address] PCP - General Family Medicine 07/31/18 documented as of this encounter
--- OUTSIDE RECORDS SUMMARY | 2024-09-30 12:29 | XMS_ITS | Encounter Summary ---
Author Organization [employer] Address [address] [place] [address] [address] [place] [address] Care Team Providers Care Microbiology Lab Assistant Name Role Phone Name, Cody DOWNEY Primary Care Provider [phone] Reason for Visit * Reason Onset Date Comments Med Refill 04/15/2024 Encounter Details Date Type Department Care Team (Late st Contact Info) Description 04/15/2024 Telephone [facility] MEDICINE [address] [place], [place] [phone] Name, MD Cody [address] [place] [address] Med Refill Social History Tobacco Use Types Packs/Day Years [...] AM EDT documented as of this encounter Miscellaneous Notes * Telephone Encounter - Maisha Bonds LPN - 04/15/2024 11:49 AM EDT Medication was discontinued ineffective * Telephone Encounter - Nelsy Clinton - 04/15/2024 11:47 AM EDT TC from pt requesting medication refill. Medications needing refill : mirtazapine (Remeron) 7.5 MG tablet To be sent to: [facility] - [place], [place] - [address] documented in this encounter Plan of Treatment Not on file documented as of this encounter Visit Diagnoses Not on filedocumented in this encounter Additional Health Concerns Assessment Noted Time PHQ-9 Depression Total Score: 24 024 9:20 AM EDT documented as of this encounter Care Teams Microbiology Lab Assistant Relationship Specialty Start Date End Date Name, MD Cody [address] [place] [phone] PCP - General Family Medicine 07/31/18 documented as of this encounter
--- OUTSIDE RECORDS SUMMARY | 2024-09-30 12:29 | XMS_ITS | Encounter Summary ---
Author Organization [employer] Address [address] [place] [address] 7 [place] [address] Care Team Providers Care Attorney At Law Name Role Phone Name, Cody DOWNEY Primary Care Provider [phone] Reason for Visit * Reason Onset Date Comments Med Refill Home Care Services 10/06/2022 I called the pt regarding an Appeal Decision Letter from [facility], that was dropped off at [facility]. The letter does not include anything for the PCP to sign off on. There is a Fair Hearing Request Form, that the pt may complete and return to [facility], if she wishes to have a hearing with them. The number [phone] is not in service at this time. I left a msg at [phone], asking her to return my call at [phone], so that I could give her the above information. Encounter Details Date Type Department Care Team (Late st Contact Info) Description 10/06/2022 Refill [facility] [address] [place] [address] Name, MD Cody [address] [place], [place] [phone] Depression, unspecified depression type Social History Tobacco Use Types Packs/Day Years Used Date Smoking Tobacco: Never Passive Smoke Exposure: Never Smokeless Tobacco: Never Alcohol Use Standard Drinks/Week Comments Never 0 (1 standard drink = 0.6 oz pur e alcohol) Comments Unknown Sex and Gender Information Value Date Recorded Sex Assigned at Female 05/30/2022 10:29 AM EDT Legal Sex Female 10:29 AM EDT Gender Identity Female 05/30/2022 10:29 AM EDT Sexual Orientation Straight 05/30/2022 10 :29 AM EDT COVID-19 Exposure Response Date Recorded In the last 10 days, have yo u been in contact with someone who was confirmed or suspected to have Coronavirus/COVID-19? No / Unsure 09/09/2022 9:39 AM EST documented as of this encounter Plan of Treatment Not on file documented as of this encounter Visit Diagnoses Diagnosis Depression, unspecified depression type documented in this encounter Care Teams Attorney At Law Relationship Specialty Start Date End Date Name, MD Cody [address] [place] [address] PCP - General Family Medicine 07/31/18 documented as of this encounter
--- OUTSIDE RECORDS SUMMARY | 2024-09-30 12:29 | XMS_ITS | Encounter Summary ---
Author Organization [employer] Address [address] [facility] 7t [place] [address] Care Team Providers Care Neighborhood Worker Name Role Phone Name, Cody DOWNEY Primary Care Provider [phone] Reason for Visit * Reason Onset Date Comments Call Back Request 08/23/2023 Encounter Details Date Type Department Care Team (Late st Contact Info) Description 08/23/2023 Telephone [facility] MEDICINE [address] [place] [address] Name, MD Cody [address] [place] [address] Call Back Request Social History Tobacco Use Types Packs/Day Years Used Date Smoking Tobacco: Never Passive Smoke Exposure: Never Smokeless Tobacco: Never Alcohol Use Standard Drinks/Week Comments Never 0 (1 standard drink = 0.6 oz pur e alcohol) Depression Answer Date Recorded Patient Health Questionnaire-9 Score 0 01/10/2023 Housing Stability Answer Date Recorded What is your housing situation today? I have ronna camara 05/30/[address] you li ve. Do you have problems with any of the following? None of the above 05/30/2023 Food Insecurity Answer Date Recorded Within the past 12 months, y ou worried that your food would run out before you got money to buy more: Never True 05/30/2023 Within the past 12 months,th e food you bought just didn't last and you didn't have enough money to get more: Never True Transportation Answer Date Recorded In the past 12 months, has l ack of transportation kept you from medical appts, meetings, work or from getting things needed for daily living? No 05/30/2023 Utilities Answer Date Recorded In the past 12 months, has t he electric, gas, oil or water Social Insight threatened to shut off services in your home? No 05/30/2023 Depression Answer Date Recorded Patient Health Questionnaire-2 Score 0 01/10/2023 Comments Unknown Sex and Gender Information Value Date Recorded Sex Assigned at Female 05/30/2022 10:29 AM EDT Legal Sex Female 10:29 AM EDT Gender Identity Female 05/30/2022 10:29 AM EDT Sexual Orientation Straight 05/30/2022 10 :29 AM EDT documented as of this encounter Miscellaneous Notes * Telephone Encounter - Lisa Duncan RN - 08/23/2023 11:46 AM EST T/C to [phone] Edel IRON MELTER from [facility] call agency, States she does head to toe assessment and med. Reconciliation for pt. In her recent visit she observed that pt. Is taking Mirtazapine, Tylenol and Excedrin. As per IRON MELTER,she visit pt. Two years ago and then also pt. Was taking Tylenol and Excedrin. Pt. Is developing tolerance to the medication, also medication is also not helping For sleep. So IRON MELTER is concerning that diphenhydramine is interacting with Mirtazapine. So IRON MELTER is asking help from PCP.Also stated that pt. has generalized weakness and right lower back pain, and would benefit from physical therapy. RN will forward this message to PCP for review. Please review and advise. * Telephone Encounter - Cecilio Raygoza - 08/23/2023 10:57 AM EST Tc from Edel (Nurse Practitioner) requesting call back regarding pt stating the mirtazapine Is not helping her sleep but she is taking Tylenol PM and Excedrin PM (either or), Edel is concerned that the diphenhydramine is interacting with the mirtazapine. Edel also stated pt has generalized wea kness, and right lower back pain and would benefit form physical therapy. Please contact Edel at [phone]. documented in this encounter Plan of Treatment Not on file documented as of this encounter Visit Diagnoses Not on filedocumented in this encounter Additional Health Concerns Assessment Noted Time PHQ-9 Depression Total Score: 0 01/11/20 23 1:41 PM EDT documented as of this encounter Care Teams Neighborhood Worker Relationship Specialty Start Date End Date Name, MD Cody [address] [place] [address] PCP - General Family Medicine 07/31/18 documented as of this encounter
--- OUTSIDE RECORDS SUMMARY | 2024-09-30 12:29 | XMS_ITS | Encounter Summary ---
Author Organization [employer] Address [address] [place] [address] 7t [place] [address] Care Team Providers Care Senior Talent Acquisition Specialist Name Role Phone Name, Cody DOWNEY Primary Care Provider [phone] Reason for Visit * Reason Onset Date Comments Med Refill 04/22/2024 Encounter Details Date Type Department Care Team (Late st Contact Info) Description 04/22/2024 Telephone [facility] MEDICINE [address] [place], [place] [phone] Name, MD Cody [address] [place] [address] Med Refill Social History Tobacco Use Types [...] Telephone Encounter - Maisha Bonds LPN - 04/22/2024 1:34 PM EDT Medication was sent to [facility] on 03/18/24 with 3 refills. * Telephone Encounter - Chaim Farfan - 04/22/2024 1:31 PM EDT TC from pt requesting medication refill. Medications needing refill : Trulicity 1.5 MG/0.5ML solution pen-injector To be sent to: [facility] - [place], [place] - [address] documented in this encounter Plan of Treatment Not on file documented as of this encounter Visit Diagnoses Not on filedocumented in this encounter Additional Health Concerns Assessment Noted Time PHQ-9 Depression Total Score: 24 024 9:20 AM EDT documented as of this encounter Care Teams Senior Talent Acquisition Specialist Relationship Specialty Start Date End Date Name, MD Cody [address] [place] [address] PCP - General Family Medicine 07/31/18 documented as of this encounter
--- OUTSIDE RECORDS SUMMARY | 2024-09-30 12:29 | XMS_ITS | Encounter Summary ---
Author Organization [employer] Address [address] [facility] [address]t [place] [address] Care Team Providers Care Electronic Industrial Controls Mechanic Name Role Phone Name, Cody DOWNEY Primary Care Provider [phone] Encounter Details Date Type Department Care Team (Latest Contact Info) Description 09/18/2024 Travel Social History Tobacco Use Types Packs/Day Years [...] Noted Time PHQ-9 Depression Total Score: 12 025 4:18 PM EST documented as of this encounter Care Teams Electronic Industrial Controls Mechanic Relationship Specialty Start Date End Date Name, MD Cody [address] [place] [address] PCP - General Family Medicine 07/31/18 documented as of this encounter
--- OUTSIDE RECORDS SUMMARY | 2024-09-30 12:29 | XMS_ITS | Encounter Summary ---
Author Organization [employer] Address [address] [place] [address] 7t [place] [address] Care Team Providers Care Metal Turner Name Role Phone Name, Cody DOWNEY Primary Care Provider [phone] Reason for Visit * Reason Onset Date Comments Appointment Request 08/12/2022 Encounter Details Date Type Department Care Team ([facility] st Contact Info) Description 08/12/2022 Telephone [facility] MEDICINE [address] [place], [place] [phone] Name, MD Cody [address] [place] [address] Appointment Request Social History Tobacco Use Types Packs/Day [...] suspected to have Coronavirus/COVID-19? No / Unsure 08/10/2022 2:05 PM EST documented as of this encounter Miscellaneous Notes * Telephone Encounter - Josh Gutierrez - 08/12/2022 11:58 AM EST Tc from pt requesting to have physical done during appt on 09/07/22 at 9:30 Please contact pt at [phone] documented in this encounter Plan of Treatment Not on file documented as of this encounter Visit Diagnoses Not on filedocumented in this encounter Care Teams Metal Turner Relationship Specialty Start Date End Date Name, MD Cody [address] [place] [address] PCP - General Family Medicine 07/31/18 documented as of this encounter
--- OUTSIDE RECORDS SUMMARY | 2024-09-30 12:29 | XMS_ITS | Data Portability ---
Author Organization [employer] [facility] [place] in - [facility] Address [address] [place] [phone] Care Team Providers Care Economics Professor Name Role Phone HIM CCA OTHER Assessment Encounter Date Assessment Date Assessment LastModified by Organization Details LastModified Time 06/07/2024 06/07/2024 I provided real -time medical direction via phone for this encounter, and was available for additional phone based assistance as needed. I have reviewed and agree with the Assessment and Plan as documented by the Medical Receptionist Medical Assistant. We discussed the diagnostic uncertainty of home visits and the risk associated with this. The patient given the opportunity to ask questions. [email or web address] Not available 06/07/2024 13:45:29 Plan of Treatment Reminders Order Date Submit Date Provider Last Modified By Organization Details Last Modified Time Details Appointments None recorded. Lab BMP, serum or plasma 2023 [email or web address] 0 [facility], [address] [place] [address], [phone], 13:50:34 urinalysis , dipstick 2023 [email or web address] 0 [facility], [address] [place] [address], [phone], 13:50:36 Referral None recorded. Procedures None recorded. Surgeries None recorded. Imaging None recorded. Medication Orders None recorded. Patient TargetsNo targets recorded. Patient InstructionsNo instructions recorded. Reason for Referral None Reported. Results Created Date Observation Date Name Description Value Unit Range Abnormal Flag Note LastModifiedBy Organization Detail LastModifiedTime 06/07/20 24 06/07/2024 urina lysis , dipst ick Urobilinogen 0.2 Not Available [address], [phone], 06/07/2024 12:12:18 06/07/20 24 06/07/2024 urina lysis , dipst ick Glucose 200 Not Available Main - Ins [address], [address], 06/07/2024 12:12:18 06/07/20 24 06/07/2024 urina lysis , dipst ick Appearance Clear Not Available Main - [facility] [address] [place] [address], [phone], 06/07/2024 12:12:18 06/07/20 24 06/07/2024 urina lysis , dipst ick Color Yellow Not Available Main - Ins [address], [address], 06/07/2024 12:12:18 06/07/20 24 06/07/2024 BMP, serum or plasm a BUN 24 Not Available Main - Ins [address], [address], 06/07/2024 12:12:17 06/07/20 24 06/07/2024 BMP, serum or plasm a Ca Ionize d calciu m 1.16 Not Available Main - Inst [address], [address], 06/07/2024 12:12:17 06/07/20 24 06/07/2024 BMP, serum or plasm a CI- 103 Not Available Main - Ins [address], [address], 06/07/2024 12:12:17 06/07/20 24 06/07/2024 BMP, serum or plasm a CRE 0.9 Not Available Main - Ins [address], [address], 06/07/2024 12:12:17 06/07/20 24 06/07/2024 BMP, serum or plasm a GLU 270 Not Available Main - Ins [address], [address], 06/07/2024 12:12:17 06/07/20 24 06/07/2024 BMP, serum or plasm a K+ 4.2 Not Available Main - Ins [address], [address], 06/07/2024 12:12:17 06/07/20 24 06/07/2024 BMP, serum or plasm a Na+ 138 Not Available Main - Ins [address], [address], 06/07/2024 12:12:17 06/07/20 24 06/07/2024 BMP, serum or plasm a tCO2 25.9 Not Available Main - Ins [address], [address], 06/07/2024 12:12:17 Result Notes None recorded. Medical Equipment None Reported. Allergies Allergen ID Allergen Name Allergen Category Reaction Reaction Severity Criticality Documentation Date Start Date Code Code System Note Provider Name and Address Organization Details Recorded Time 89556 [facility] medicatio n Not available Not available Not available 06/07/20242001 RxNorm Not Available [facility] - production 4 10:07:31 29272 paroxetin e Not available Not available Not available Not available 06/07/2024 42175 RxNorm Not Available [facility] - production 4 10:07:31 Medications Name Sig Start Date Stop Date Status Note LastModified by Organization Details LastModified Time celecoxib 200 mg capsule active Not Available Not Available Not Available amoxicillin 500 mg capsule active Not Available Not Available N ot Available trazodone 50 mg tablet active Not Available Not Available Not Available polyethylene glycol 3350 17 gram oral powder packet active Not Available Not Available Not Available ibuprofen 800 mg tablet active Not Available Not Available Not Available mirtazapine 45 mg disintegrating tablet active Not Available Not Available Not Available omeprazole 40 mg capsule,delayed release active Not Available Not Available Not Available cefadroxil 500 mg capsule active Not Available Not Available Not Available losartan 100 mg-hydrochlorothi azide 25 mg tablet active Not Available Not Available Not Available meclizine 25 mg tablet active Not Available Not Available Not Available metformin 1,000 mg tablet active Not Available Not Available No t Available cholecalciferol (vitamin D3) 25 mcg (1,000 unit) tablet active Not Available Not Available Not Available peg 3350-electrolytes 236 gram-22.74 gram-6.74 gram-5.86 gram solution active Not Available Not Available Not Available diclofenac 1 % topical gel active Not Available Not Available Not Available Jardiance 10 mg tablet active Not Available Not Available Not Available Trulicity 1.5 mg/0.5 mL subcutaneous pen injector active Not Available Not Available Not Available Trulicity 3 mg/0.5 mL subcutaneous pen injector active Not Available Not Available Not Available Vitals Date Recorded Respiratory rate Heart rate Body weight Oxygen saturation Oxygen saturation in Arterial blood by Pulse oximetry Body temperature Systolic blood pressure Diastolic blood pressure Provider Name and Address Organization Details Last Updated DateTime 4 16 /min 76 /min 86354.9 6 g 98 % 98 % 98 [degF] 122 mm[Hg] 70 mm[Hg] Not Available [facility] - production 4 11:43:09 Social History None recorded. Functional Status None recorded. Mental Status None recorded. Family History Nothing Reported. Medical History No medical history recorded. Gynecological HistoryNo gynecological history recorded. Obstetrics History GPAL:G 0 P 0 0 0 0 Past Encounters Encounter ID Performer Location Encounter Start Date Encounter Closed Date Diagnosis/Indication Diagnosis SNOMED-CT Code Diagnosis ICD10 Code Diagnosis Note [id number] Heidi Mix MD Main - [facility] [address] [place] [phone] 06/07/2024 11:43:01 06/08/2024 15:49:15 Abdominal pain 04702316 R10.9 An elderly diabetic who is hyperglyce cony with an elevated lactate/no evidence of UTI with significan t right lower quadrant tenderness and a history of diverticul itis-given elevated lactate risk of intra-abdo miguel angel infection cannot rule out intestinal ischemia /needs to be worked up with labs and imaging. Advised need to go to the emergency room for further workup and treatment possible admission- she verbalized understand ing, refused EMS and will go by car with family. Report called to [facility] ER. Health Concerns Section Related Observation LastModified by Organization Detai ls LastModified Time None Recorded Concern Status LastModified by Organization Details LastModified Time None Recorded Advance Directives Directive None Recorded Payers Encounter Date Sequence Insurance Name Policy Number Policy Benavides Covered Member ID Benavides Member ID Guarantor Name 06/07/2024 1 [facility] - DOS ON OR AFTER 2022 - DUAL ELIGIBLE - LONGTERM OPTIONS AND ONE CARE (MEDICARE REPLACEMENT/ADV ANTAGE - HMO) Mary Rich [id number] Mary Rich Notes Date Note Type Note Provider Name and Address Organization Details Recorded Time 06/07/2024 text/html HPI: 2 week history of dizziness of unknown cause. Constipation now day 3 with no BM and upper abdominal discomfort. Not taking RX laxative drinking only Tea. BG 165 prior to breakfast. No specific urinary issues .................... .................... .................... .................... .................... .................... .................... . [facility] Nurse Triage Notes (Polo Becerra): Chief Complaints: Abdominal pain, Dizziness, Nausea PMH: Diabetes Mellitus Type 2, Hypertension Comments: Reviewed HPI Medical Receptionist Medical Assistant Organization Information for Marquise Gomez Legal Name: [facility] Transportation Address: [address] [place] [address], [place] [address], Primary Education Professor: Mahesh White MD CLIA No.: [id number] Medical Receptionist Medical Assistant POC Test Results from Marquise Gomez Urine Dipstick (11:40:13) Urine leukocytes: NR Urine nitrites: NR Urine urobilinogen: 0.2(3.5) URO Urine protein: NR Urine pH: 5 pH Urine blood: NR Urine specific gravity: 1.015 SG Urine ketones: NR Urine bilirubin: NR Urine glucose: 200 GLU .................... .................... .................... .................... .................... .................... .................... . Medical Receptionist Medical Assistant Note From Marquise Gomez: Pt co abdominal pain and no bowel movements for 3 days. Pt sts is taking Polythlene Glycol 17G daily with no relief and headache in the evenings not during the day. Pt sts has moments of dizziness and has to lay down and feels weak in her legs. Pt denies blurry vision or speech changes. Pt denies confusion. Pt denies CP, SOB, NVD. Pt denies black or bloody stools. denies urinary symptoms. Baseline vitals assessed, WNL, Afebrile, palpitation of the abdomen and pt sts has a lot of pain in her lower right quadrant and little pain in the other 3 quadrants/Pt sts /10. Pt has good coloring and turgor, Lungs clear, pt able to answer questions appropriately, Urine dip unremarkable, urine clear and yellow in color. POC bloodwork performed, elevated lactate 2.93. Elevated BG 270 HCT 50 otherwise unremarkable. [facility] Dominguez contacted and advised pt to go to ER for imagining. Pt sts will go to [facility]. Pt education on signs to call 911. Pt advised to follow up with pcp in regards to her elevated BG. Pt signed hard copy consent. Pt and family were very pleasant during the visit. .................... .................... .................... .................... .................... .................... .................... . [facility] Consulted: Heidi Mix .................... .................... .................... .................... .................... .................... .................... . Disposition: Fulfilled SEGMD: As above-patient has a history of diverticulitis-she reports having little appetite is drinking some fluids.-Pain is mostly in the right lower quadrant but has pain all over. She reports she has had an appendectomy Heidi Mix MD [address] [place] [address],[address], [place], [address], [facility] [employer] 06/08/2024 04:06:16 OBGyn Episode No OBEpisode recorded.
--- OUTSIDE RECORDS SUMMARY | 2024-09-30 12:29 | XMS_ITS | Encounter Summary ---
Author Organization [facility] Address [address] [place] [address] [address] [place] [address] Care Team Providers Care Drain Tile Press Operator Name Role Phone Cody Way MD Primary Care Provider [phone] Reason for Referral * Consultation (Routine) - Authorized Specialty Diagnoses / Procedures Referred By Van nolan Referred To Contact Pharmacy Diagnoses Type 2 diabetes mellitus with other specified complication, without long-term current use of insulin ([facility]/HCC) Cody Way MD [address] [place] [address] Phone: tel: fax: Referral ID Status Reason Start Date Expiration Date Visits Requested Visits Authorized [id number] Authorized Consult and Treat 09/18/2024 09/18/2025 6 6 * Medications - Closed Specialty Diagnoses / Procedures Referred By Van nolan Referred To Contact Diagnoses Type 2 diabetes mellitus with other specified complication, without long-term current use of insulin ([facility]/HCC) Cody Way MD [address] [place] [phone] Phone: tel: fax: Referral ID Status Reason Start Date Expiration Date Visits Re quested Visits Authorized [id number] Closed 1 1 * Consultation (Routine) - Authorized Specialty Diagnoses / Procedures Referred By Van nolan Referred To Contact Pharmacy Diagnoses Type 2 diabetes mellitus with other specified complication, without long-term current use of insulin ([facility]/HCC) Cody Way MD [address] [place] [address] Phone: tel: fax: Referral ID Status Reason Start Date Expiration Date Visits Requested Visits Authorized [id number] Authorized Continuity of Care 09/18/2024 09/18/2025 6 6 Reason for Visit * Reason Comments Diabetes Encounter Details Date Type Department Care Team (Late st Contact Info) Description 09/18/2024 2:00 PM EST Office Visit [facility] [address] [place] [address] MD [address] [place] [address] Type 2 diabetes mellitus with other specified complication, without long-term current use of insulin ([facility]) (Primary Dx); Nausea; Constipation, unspecified constipation type; Encounter for immunization Social History Tobacco Use Types Packs/Day Years [...] AM EDT documented as of this encounter Last Filed Vital Signs Vital Sign Reading [...] Mass Index 26.01 09/18/2024 2:16 PM EST documented in this encounter Progress Notes * Cody Way MD - 09/18/2024 2:00 PM EST Subjective Patient ID: Mary Rich is a 78 y.o. female who presents for Diabetes. Patient comes for a follow-up visit. She is accompanied by her daughter. She does not bring her glucose meter. Blood sugar is not well-controlled based on hemoglobin A1c of 8 today. This is not much better compared to previous visit. She admits to occasional noncompliance with oral medications. Sheis using her Trulicity weekly and she describes nausea and constipation since he started using the medication. The patient tells me she has been stressed and overeating lately because of the recent of a family member. The patient has a therapist. She is not suicidal. Review of Systems Constitutional: Negative for chills and fever. HENT: Negative for sore throat. Respiratory: Negative for cough, shortness of breath and wheezing. Cardiovascular: Negative for chest pain, palpitations and leg swelling. Gastrointestinal: Positive for constipation and nausea. Negative for abdominal pain and vomiting. Psychiatric/Behavioral: Positive for sleep disturbance. The patient is nervous/anxious. Visit Vitals BP (!) 140/81 (BP Location: Left arm, Patient Position: Sitting, BP Cuff Size: Adult) Pulse 81 Temp 98.8 ??F (37.1 ??C) (Temporal) Resp 21 Ht 5' (1.524 m) Wt 133 lb 3.2 oz (60.4 kg) SpO2 98% BMI 26.01 kg/m?? Smoking Status Never BSA 1.6 m?? Objective Physical Exam Constitutional: Appearance: Normal appearance. Cardiovascular: Rate and Rhythm: Normal rate and regular rhythm. Heart sounds: No murmur heard. No gallop. Pulmonary: Effort: Pulmonary effort is normal. No respiratory distress. Breath sounds: Normal breath sounds. No wheezing. Musculoskeletal: Right lower leg: No edema. Left lower leg: No edema. Neurological: Mental Status: She is alert. Assessment/Plan Diagnoses and all orders for this visit: Type 2 diabetes mellitus with other specified complication, without long-term current use of insulin ([facility]) Comments: The patient is having side effects to the Trulicity. I recommended to switch to Mounjaro. She is encouraged to use her oral medications daily. Check fasting blood work listed below. Referral to [facility] and CD Flu vaccine today Orders: - POCT Glucose - POCT HGB A1C - CBC auto differential; Future - Comprehensive Metabolic Panel; Future - Lipid Panel, Standard; Future - Albumin, Random Urine W/Creatinine; Future - Referral to Pharmacy [facility] - Tirzepatide (Mounjaro) 5 MG/0.5ML solution auto-injector; Inject 5 mg under the skin 1 (one) timeper week. - Referral to Pharmacy CDTM Nausea Constipation, unspecified constipation type - CBC auto differential; Future - Comprehensive Metabolic Panel; Future - Lipid Panel, Standard; Future - Albumin, Random Urine W/Creatinine; Future Encounter for immunization documented in this encounter Plan of Treatment Scheduled Referrals Name Type Priority Associated Diagnoses Orde r Schedule Referral to Pharmacy [facility] Outpatient Referral Routine Type 2 diabetes mellitus with other specified complication, without long-term current use of insulin (CMS/HCC) Ordered: 09/18/2024 Referral to Pharmacy CD Outpatient Referral Routine Type 2 diabetes mellitus with other specified complication, without long-term current use of insulin (CMS/HCC) Ordered: 09/18/2024 documented as of this encounter Procedures Procedure Name Priority Date/Time Associated Diagnosis [...] without long-term current use of insulin (CMS/HCC) documented in this encounter Results * Albumin, Random Urine W/Creatinine (09/30/2024 10:43 AM EST) Creatinine, Urine 95.40 mg/dL [facility] Microalbumin Urine 6.0 mg/L H [facility] Microalbum Creatinine Ratio Ur 6.2 <30 ug/mg cr [facility] Comment:Albumin/Creatinine R at Reference Ranges: Normal: < 30 ug/mg creatinine Microalbuminuria: 30 - 300 ug/mg creatinineClinical Albuminuria: > 300 ug/mg creatinine Urine (Urine, Random) 09/30/2024 10:43 AM EST 09/30/2024 11:32 [address] EST us [address] MD LAB URINE ORDERABLES Final Resul t [facility] [address] [place] [phone] * Lipid Panel, Standard (09/30/2024 10:43 AM EST) Triglycerides 97 <150 mg/dL [facility] Comment:Desirable Triglyceri de: less than 150 mg/dLBorderline High Triglyceride 150-199 mg/dLHigh Triglyceride: 200-499 mg/dLVery High Triglyceride: greater than or equal to 5OO mg/dL Cholesterol 140 <200 mg/dL [facility] Comment:Desirable Cholestero l: less than 200 mg/dLBorderline High Cholesterol: 200-239 mg/dLHigh Cholesterol: greater than 239 mg/dL LDL Cholesterol Calculated 73 <100 mg/dL [facility] Comment:Desirable LDL: less than 100 mg/dLNear Optimal/Above Optimal LDL: 110- 129 mg/dLBorderline High LDL: 130-159 mg/dLHigh LDL: 160-189 mg/dLVery High LDL: greater than or equal to 190 mg/dL HDL Cholesterol 48 >40 mg/dL [facility] Comment:Desirable HDL: great er than 40 mg/dL Note: This HDL assay may give artificially low results in patients with liver disease. Blood Venous blood specimen / Unknown 09/30/2024 10:43 AM EST 09/30/2024 11:40 AM EST us Cody [address] MD LAB BLOOD ORDERABLES Final Resul t Performing Organization Address City/[facility]/ZIP Co de Phone Number [facility] [address] [place] [address] [phone] * (ABNORMAL) Comprehensive Metabolic Panel (09/30/2024 10:43 AM EST) Sodium 141 135 - 145 mmol/L [facility] Potassium 4.1 3.3 - 5.1 mmol/L [facility] Chloride 105 96 - 108 mmol/L [facility] Carbon Dioxide 25 22 - 29 mmol/L [facility] Anion Gap 15 12 - 20 [facility] Urea Nitrogen (BUN) 23(H) 9 - 16 mg/dL [facility] Creatinine, Serum 0.96 0.5 - 1.4 mg/dL [facility] Estimated Glomerular Filt Rate 56 [facility] Comment:Chronic Kidney Disea se: Estimated GFR < 60 mL/min/1.93q2Jffbgd Kidney Disease: Estimated GFR < 15 mL/min/1.73m2 Glucose 161(H) 60 - 115 mg/dL [facility] Calcium 8.8 8.4 - 10.2 mg/dL [facility] Bilirubin, Total 0.3 0.0 - 1.0 mg/dL [facility] Aspartate Amino Transferase 40(H) 5 - 31 U/L [facility] Alanine Aminotransferase 57(H) 0 - 31 U/L [facility] Total Protein 7.2 6.5 - 8.0 g/dL [facility] Albumin Level 3.9 3.5 - 5.0 g/dL [facility] Alkaline Phosphatase 94 39 - 117 U/L [facility] Blood Venous blood specimen / Unknown 09/30/2024 10:43 AM EST 09/30/2024 11:[address] MD LAB BLOOD ORDERABLES Final Resul t Performing Organization Address [facility]/ZIP Co de Phone Number [facility] [address] [place] [phone] [phone] * (ABNORMAL) CBC auto differential (09/30/2024 10:43 AM EST) White Blood Count 5.7 4.8 - 10.8 X10*3/uL [facility] Red Blood Count 4.04(L) 4.20 - 5.50 X10*6/uL [facility] Hemoglobin 12.5 12.0 - 16.0 g/dl [facility] Hematocrit 38.2 37.0 - 47.0 % [facility] Mean Corpuscular Volume 94.6 80.0 - 98.0 fL [facility] Mean Corpuscular Hemoglobin 30.9 27.0 - 33.0 pg [facility] Mean Corpuscular HGB Conc 32.7 31.0 - 35.0 g/dl [facility] Red Cell Distribution Width 12.7 11.0 - 16.0 % [facility] Platelet Count 207 160 - 400 X10*3/uL [facility] Mean Platelet Volume 10.1 9.4 - 12.3 [facility] Neutrophils Percent Auto 48.1 45 - 73 % [facility] Imm Gran Pct Auto 0.4 0.0 - 0.4 % [facility] Lymphocytes Percent Auto 37.1 20 - 40 % [facility] Monocytes Percent Auto 9.3 2 - 11 % [facility] Eosinophils Percent Auto 4.0 0 - 4 % [facility] Basophils Percent Auto 1.1 0 - 2 % [facility] NRBC Pct Auto 0.0 0.0 - 0.2 /100WBC [facility] Neutrophils Absolute Auto 2.7 2.0 - 8.3 x10*3/uL [facility] Imm Gran Abs Auto 0.02 0.00 - 0.03 X10*3/uL [facility] Lymphocytes Absolute Auto 2.1 1.2 - 4.9 X10*3/uL [facility] Monocytes Absolute Auto 0.5 0.1 - 1.2 X10*3/uL [facility] Eosinophils Absolute Auto 0.2 0.0 - 0.4 X10*3/uL [facility] Basophils Absolute Auto 0.1 0.0 - 0.2 X10*3/uL [facility] NRBC Abs Auto 0.000 0.0 - 0.012 X10*3/uL [facility] Blood Venous blood specimen / Unknown 09/30/2024 10:43 AM EST 09/30/2024 11:40 AM EST Result [address] MD LAB BLOOD ORDERABLES Final Resul t [facility] [address] [place] [phone] * (ABNORMAL) POCT HGB A1C (09/18/2024 [...] Media Lot # [id number] Lot# Expiration Date 53,025 Blood Capillary blood specimen / Unknown 09/18/2024 2:17 PM EST Result Forest [address] MD POINT OF CARE TEST ENTER/EDIT OR DERABLES Final Result documented in this encounter Visit Diagnoses Diagnosis Type 2 diabetes mellitus with other specified complication, without long-term current use of insulin ([facility])- Primary Nausea Nausea alone Constipation, unspecified constipation type Encounter for immunization documented in this encounter Additional Health Concerns Assessment Noted Time PHQ-9 Depression Total Score: 12 025 4:18 PM EST documented as of this encounter Care Teams Drain Tile Press Operator Relationship Specialty Start Date End Date NameCody MD [address] [place] [phone] PCP - General Family Medicine 07/31/18 documented as of this encounter
--- OUTSIDE RECORDS SUMMARY | 2024-09-30 12:29 | XMS_ITS | Encounter Summary ---
Author Organization [employer] Address [address] [facility] [address] [place] [address] Care Team Providers Care Departmental Shipping Clerk Name Role Phone Name, Cody DOWNEY Primary Care Provider [phone] Reason for Visit * Reason Comments Med Refill Encounter Details Date Type Department Care Team (Late st Contact Info) Description 09/28/2023 Refill [facility] [address] [place], [place] [phone] Laurel Roberts, ISAK [address] [place], [place] [phone] Vitamin D deficiency Social History Tobacco Use Types Packs/Day Years [...] as of this encounter Visit Diagnoses Diagnosis Vitamin D deficiency documented in this encounter Additional Health Concerns Assessment Noted Time PHQ-9 Depression Total Score: 0 01/11/20 23 1:41 PM EDT documented as of this encounter Care Teams Departmental Shipping Clerk Relationship Specialty Start Date End Date Name, MD Cody [address] [place] [address] PCP - General Family Medicine 07/31/18 documented as of this encounter
[2024-09-30 12:33] LABS: Vitamin B12 > 2000 pg/mL (200-900)
== END 2024-09-30 10:40 | disposition home or self-care (01) ==
LOC: HO.HHCL 10:39
PROVIDERS: Visit Provider Internal Medicine Geriatric Medicine
DX: E11.69 Type 2 diabetes mellitus with other specified complication (principal); K59.00 Constipation, unspecified
CPT/HCPCS: 36415; 80053; 80061; 82043; 82570; 82607; 85025

== ENCOUNTER 2025-02-03 15:17 | Outpatient (REF) | payer OTHER, SELFPAY ==
--- OUTSIDE RECORDS SUMMARY | 2025-02-03 15:36 | XMS_ITS ---
Author Name MS. Prisca Berman APRN Address [address] [place] [address] Phone [phone] [facility] Care Team Providers Care Face Man Name Role Phone Jennifer Berman Unavailable [phone] Reason for Referral Not Available Allergies, adverse [...] List Problem Status Onset Date Resolved Date Synopsis Vertigo Active 2023-06-14 N/A Meclizine GERD (gastroesophageal reflux disease) Active 2023-06-14 N/A Omeprazole Type 2 diabetes mellitus with diabetic peripheral angiopathy without gangrene; Type 2 diabetes mellitus with hyperglycemia Active 2023-06-14 N/A StableMetform in, Trulicity, Jardiance Low carb diet, exercise as tolerable, monitor BLE routinely, monitor BG routinely, and continue f/u care and monitoring with PCP. Essential hypertension Active 2023-06-14 N/A St ableLosartanMonitor BP routinely, Low salt diet, exercise as tolerable and continue f/u care and monitoring with PCP. Major depression in remission Active 2023-06-14 N/A StableDenies med ication management Denies SI/HIContinue taking medication, coping mechanisms, and continue f/u care with PCP. Osteoarthritis Active 2023-06-15 N/A TylenolROM exercises, continue taking medication and continue f/u care with PCP.at risk for fallsFall prevention TIPS: Wear sensible shoes. Remove home hazards (Get rid of all rugs/mats in your home). Light up your living space (keep a flash light next to your bed for night time). Use assistive devices. Encounters Encounters Type Facility Date of Service Diagnosis/Co mplaint No Data Available [facility], [place] 06[place]15/2023 Type 2 diabetes w diabetic peripheral angiopath w/o gangreneType 2 diabetes mellitus with hyperglycemiaEssential (primary) hypertensionDizziness and giddinessGastro-esophageal reflux disease without esophagitisMajor depressive disorder, single episode, in full remissionUnspecified osteoarthritis, unspecified siteLow back pain, unspecifiedOther chronic pain No Data Available [facility] 06/15/2023 No Data Available [facility] [place] 06/15/2023 No Data Available [facility] [place] 06/15/2023 No Data Available [facility] [place] 06/15/2023 No Data Available [facility] [place] 06/15/2023 No Data Available [facility] [place] 06/15/2023 No Data Available [facility], ([place]) 06/15/2023 No Data Available [facility] [place] 06/[place]/2023 Estab. patient 20-29min; 1 stable chronic or 2 minor; add add modifier 95 for video, modifier 93 for phone [facility] [place] 06/26/2023 Type 2 diabetes w diabetic peripheral angiopath w/o gangreneType 2 diabetes mellitus with hyperglycemiaEssential (primary) hypertensionDizziness and giddinessGastro-esophageal reflux disease without esophagitisMajor depressive disorder, single episode, in full remissionUnspecified osteoarthritis, unspecified siteLow back pain, unspecifiedOther chronic pain Estab. patient 20-29min; 1 stable chronic or 2 minor; add add modifier 95 for video, modifier 93 for phone [facility] [place] 06/26/2023 Estab. patient 20-29min; 1 stable chronic or 2 minor; add add modifier 95 for video, modifier 93 for phone [facility] [place] 06/26/2023 Estab. patient 20-29min; 1 stable chronic or 2 minor; add add modifier 95 for video, modifier 93 for phone [facility] [place] 06/26/2023 Estab. patient 20-29min; 1 stable chronic or 2 minor; add add modifier 95 for video, modifier 93 for phone [facility], ([place] 06/26/2023 Vital Signs Date of Collection Vitals 2023-06-15 06:17:44 Height - 152.4 cmWei ght - 54.43 kgBody Mass Index (BMI) - 23.44 kg/m2 2023-06-26 08:34:20 Weight - 54.43 kgBod y Mass Index (BMI) - 23.44 kg/m2Pain Scale - 3.0 {score} Social History Social History Social History Observation Description Effec tive Time Current Smoking Status Never smoker 7 Sex Female History of Procedures Procedures Service Procedure code Service date Servicing provider Phone# No Data Available [id number] 2023-06-15 No Data Available No Data Available [...] discussed and documented in the medical record beneficiary/patient did not wish to or was [...] 95 for video, modifier 93 for phone [id number] 2023-06-26 No Data Available No Data Availa [...] modifier 95Advance care planning discussed and documented advance care plan or surrogate decision-maker was documented in the medical record. (1123F)Advance care planning discussed and documented in the medical record beneficiary/patient did not wish to or was [...]
--- OUTSIDE RECORDS SUMMARY | 2025-02-03 15:37 | XMS_ITS | Data Portability ---
Author Organization Team [facility] Address [address] [place] [phone] Care Team Providers Care Director Workers Compensation Name Role Phone HIM CCA OTHER Assessment Encounter Date Assessment Date Assessment LastModified by Organization Details LastModified Time 06/07/2024 06/07/2024 I provided real -time medical direction via phone for this encounter, and was available for additional phone based assistance as needed. I have reviewed and agree with the Assessment and Plan as documented by the Field Coil Winder. We discussed the diagnostic uncertainty of home visits and the risk associated with this. The patient given the opportunity to ask questions. [email or web address] Not available 06/07/2024 13:45:29 Plan of Treatment Reminders Order Date Submit Date Provider Last Modified By Organization Details Last Modified Time Details Appointments None recorded. Lab BMP, serum or plasma [email or web address], [address] 13:50:34 urinalysis , dipstick [address]23 [email or web address], [address] 13:50:36 Referral None recorded. Procedures None recorded. Surgeries None recorded. Imaging None recorded. Medication Orders None recorded. Patient TargetsNo targets recorded. Patient InstructionsNo instructions recorded. Reason for Referral None Reported. Results Created Date Observation Date Name Description Value Unit Range Abnormal Flag Note LastModifiedBy Organization Detail LastModifiedTime 06/07/2006/07/2024 urina lysis , dipst ick Urobilinogen 0.2 Not Available [address], [address] 06/07/2024 12:12:18 06/07/2006/07/2024 urina lysis , dipst ick Glucose 200 Not Available Main - Ins [address], [address] [place] [address] 06/07/2024 12:12:18 06/07/20 24 06/07/2024 urina lysis , dipst ick Appearance Clear Not Available Main - [address], [address] [place] [address] 06/07/2024 12:12:18 06/07/20 24 06/07/2024 urina lysis , dipst ick Color Yellow Not Available Main - Ins [address], [address] [place] [address] 06/07/2024 12:12:18 06/07/20 24 06/07/2024 BMP, serum or plasm a BUN 24 Not Available Main - Ins [address], [address] [place] [address] 06/07/2024 12:12:17 06/07/20 24 06/07/2024 BMP, serum or plasm a Ca Ionize d calciu m 1.16 Not Available Main - [address], [address] [place] [address] 06/07/2024 12:12:17 06/07/20 24 06/07/2024 BMP, serum or plasm a CI- 103 Not Available Main - Ins [address], [address] [place] [address] 06/07/2024 12:12:17 06/07/20 24 06/07/2024 BMP, serum or plasm a CRE 0.9 Not Available Main - [facility] [address], [address] [place] [address] 06/07/2024 12:12:17 06/07/20 24 06/07/2024 BMP, serum or plasm a GLU 270 Not Available Main - Ins [address], [address] [place] [address] 06/07/2024 12:12:17 06/07/20 24 06/07/2024 BMP, serum or plasm a K+ 4.2 Not Available Main - Ins [address], [address] [place] [address] 06/07/2024 12:12:17 06/07/20 24 06/07/2024 BMP, serum or plasm a Na+ 138 Not Available Main - Ins [address], [address] [place] [address] 06/07/2024 12:12:17 06/07/20 24 06/07/2024 BMP, serum or plasm a tCO2 25.9 Not Available Main - Ins [address], [address] 06/07/2024 12:12:17 Result Notes None recorded. Medical Equipment None Reported. Allergies Allergen ID Allergen Name Allergen Category Reaction Reaction Severity Criticality Documentation Date Start Date Code Code System Note Provider Name and Address Organization Details Recorded Time 11627 carbamkye pine medicatio n Not available Not available Not available 06/07/20242001 RxNorm Not Available [facility] - production 4 10:07:31 50396 paroxetin e Not available Not available Not available Not available 06/07/2024 51661 RxNorm Not Available [facility] - production 4 10:07:31 Medications Name Sig [...] blood by Pulse oximetry Body temperature Systolic And Diastolic Provider Name and Address Organization Details Last Updated DateTime 4 16 /min 76 /min 96968.9 6 g 98 % 98 % 98 [degF] 122/70 mm[Hg] Not Available [facility] - production 4 [...] SNOMED-CT Code Diagnosis ICD10 Code Diagnosis Note [id number] Heidi Mix MD Main - [facility] [address] [place] [phone] 06/07/2024 11:43:01 06/08/2024 15:49:15 Abdominal pain 01039228 R10.9 An elderly diabetic who is hyperglyce [...] by car with family. Report called to [facility] ER. Health Concerns Section Related Observation LastModified by Organization Detai ls LastModified Time None Recorded Concern Status LastModified by Organization Details LastModified Time None Recorded Advance Directives Directive None Recorded Payers Insurance Date Sequence Insurance Name Policy Number Policy Benavides Covered Member ID Benavides Member ID Guarantor Name 06/08/2024 1 [facility] - DOS ON OR AFTER 2022 - DUAL ELIGIBLE - LONG TERM OPTIONS AND ONE CARE (MEDICARE REPLACEMENT/ADV ANTAGE - HMO) Mary Rich [id number] Mary Rich Notes Date Note Type Note [...] Mellitus Type 2, Hypertension Comments: Reviewed HPI Field Coil Winder Organization Information for Marquise Gomez Legal Name: [facility] Transportation Address: [address] [place] [address], Embedded Hardware Engineer: Mahesh White MD [facility] No.: [id number] Field Coil Winder POC Test Results from Marquise Gomez Urine Dipstick (11:40:13) Urine leukocytes: NR Urine nitrites: NR Urine urobilinogen: 0.2(3.5) URO Urine protein: NR Urine pH: 5 pH Urine blood: NR Urine specific gravity: 1.015 SG Urine ketones: NR Urine bilirubin: NR Urine glucose: 200 GLU .................... .................... .................... .................... .................... .................... .................... . Field Coil Winder Note From Marquise Gomez: Pt co abdominal [...] pain in the other 3 quadrants/Pt sts 10/07. Pt has good coloring and turgor, Lungs clear, pt able to answer questions appropriately, Urine dip unremarkable, urine clear and yellow in color. POC bloodwork performed, elevated lactate 2.93. Elevated BG 270 HCT 50 otherwise unremarkable. [facility] Dominguez contacted and advised pt to go to ER for imagining. Pt sts will go to [facility]. Pt education on signs to call 911. Pt advised to follow up with pcp in regards to her elevated BG. Pt signed hard copy consent. Pt and family were very pleasant during the visit. .................... .................... .................... .................... .................... .................... .................... . [facility] Consulted: Heidi Mix .................... .................... .................... .................... .................... .................... .................... . Disposition: Fulfilled SEGMD: As above-patient has a history of diverticulitis-she reports having little appetite is drinking some fluids.-Pain is mostly in the right lower quadrant but has pain all over. She reports she has had an appendectomy Heidi Mix MD [address] [place] [address],[address], [place], [address], CHRIS - Dibsie 06/08/2024 04:06:16 OBGyn Episode No OBEpisode recorded.
--- OUTSIDE RECORDS SUMMARY | 2025-02-03 15:37 | XMS_ITS | Encounter Summary ---
Author Organization [employer] Address [address] [place] [address] Care Team Providers Care Machine Slat Basket Maker Name Role Phone Name, Cody DOWNEY Primary Care Provider Encounter Details Date Type Department Care Team ([facility] st Contact Info) Description 07/15/2024 Telephone [facility] [address] [place], [place] [phone] Name, MD Cody [address] [place] [address] Social History Tobacco Use Types Packs/Day Years [...] documented as of this encounter Care Teams Machine Slat Basket Maker Relationship Specialty Start Date End Date Name, MD Cody [address] [place] [address] PCP - General Family Medicine 07/31/18 documented as of this encounter
[2025-02-03 17:27] LABS: Alanine Aminotransferase 30 U/L (0-31); Albumin Level 4.5 g/dL (3.5-5.0); Alkaline Phosphatase 115 U/L (39-117); Anion Gap 14 (12-20); Aspartate Amino Transferase 27 U/L (5-31); Blood Urea Nitrogen 24 mg/dL (9-16); Calcium 9.5 mg/dL (8.4-10.2); Carbon Dioxide 27 mmol/L (22-29); Chloride 103 mmol/L (96-108); Estimated Glomerular Filt Rate > 60; Potassium 4.1 mmol/L (3.3-5.1); Sodium 140 mmol/L (135-145); Total Protein 7.5 g/dL (6.5-8.0)
== END 2025-02-03 15:18 | disposition home or self-care (01) ==
LOC: HO.HHCL 15:17
PROVIDERS: PCP Internal Medicine Geriatric Medicine; Visit Provider Internal Medicine Geriatric Medicine
DX: R74.01 Elevation of levels of liver transaminase levels (principal)
CPT/HCPCS: 36415; 80053

== ENCOUNTER 2025-05-02 12:34 | Outpatient (REF) | payer OTHER, SELFPAY ==
--- OUTSIDE RECORDS SUMMARY | 2025-04-30 15:00 | XMS_ITS | Encounter Summary ---
Author Organization [employer] Address [address] [place] [address] [address] [place] [address] Care Team Providers Care Manager Of Recruiting Name Role Phone Cody Way MD Primary Care Provider [phone] Reason for Referral * Consultation (Urgent) - Closed Specialty Diagnoses / Procedures Referred By Van nolan Referred To Contact Physical Therapy Diagnoses Chronic pain of both knees Cody Way MD [address] [place] [address] Phone: tel: fax: [facility] [address] [place] [phone] Phone: tel: fax: Referral ID Status Reason Start Date Expiration Date V isits Requested Visits Authorized [id number] Closed Specialty Services Required 05/02/2025 05/02/2026 1 1 Encounter Details Date Type Department Care Team (Late st Contact Info) Description 04/30/2025 3:00 PM EDT Office Visit [facility] [address] [place] [phone] MD [address] [place] [phone] Chronic pain of both knees (Primary Dx); Encounter for immunization Social History Tobacco Use [...] Access Answer Date Recorded Internet Access Q1 Yes 02/26/2025 Internet Access Q2 Not on file 02/26/2025 Comments Unknown Sex and Gender Information Value Date Recorded Sex Assigned at Female 05/30/2022 10:29 AM EDT Legal Sex Female 10:29 AM EDT Gender Identity Female 05/30/2022 10:29 AM EDT Sexual Orientation Straight 05/30/2022 10 :29 AM EDT documented as of this encounter Last Filed Vital Signs Vital Sign Reading Time Taken Comments Blood Pressure 122/68 04/30/2025 2:51 PM EDT Pulse 90 04/30/2025 2:51 PM EDT Temperature 36.6 C (97.8 F) 04/30/2025 2:51 PM EDT Respiratory Rate 16 04/30/2025 2:51 PM EDT Oxygen Saturation 96% 04/30/2025 2:51 PM EDT Inhaled Oxygen Concentration - - Weight 58.6 kg (129 lb 2 oz) 04/30/2025 2:51 PM EDT Height 152.4 cm (5') 04/30/2025 2:51 PM EDT Body Mass Index 25.22 04/30/2025 2:51 PM EDT documented in this encounter Progress Notes * Griselda Gold NP - 04/30/2025 3:00 PM EDT Subjective Patient ID: Mary Rich is a 79 y.o. female who presents for bilateral knee pain and chronic lowback pain. HPI R knee pain x2 month L knee pain x3 weeks Both knees are worse at night. Heating pad alleviates slightly. Disturbing sleep. Takes Tylenol forarthritis. Worsened by walking. No known injury. Chronic Low back pain (10 yrs) -previously received injections. Review of Systems Constitutional: Positive for activity change. Decreased walking due to pain Musculoskeletal: Positive for arthralgias, back pain and joint swelling. Visit Vitals BP 122/68 (BP Location: Right arm, Patient Position: Sitting, BP Cuff Size: Adult) Pulse 90 Temp 97.8 ??F (36.6 ??C) (Oral) Resp 16 Ht 5' (1.524 m) Wt 129 lb 2 oz (58.6 kg) SpO2 96% BMI 25.22 kg/m?? Smoking Status Never BSA 1.58 m?? Objective Physical Exam Constitutional: General: She is not in acute distress. Appearance: Normal appearance. She is not ill-appearing. Musculoskeletal: General: Swelling and tenderness present. Right knee: Swelling present. Normal range of motion. Tenderness present. Left knee: Swelling present. Normal range of motion. Tenderness present. Right lower leg: Normal. No swelling. No edema. Left lower leg: Normal. No swelling. No edema. Comments: 5/5 strength bilateral knee flexion & extension. Neurological: Mental Status: She is alert. Assessment/Plan Problem List Items Addressed This Visit Chronic pain of both knees - Primary Likely degenerative joint disease. Will start short course of celecoxib (2 wks) and re-evaluate after x-ray results. Relevant Medications celecoxib (CeleBREX) 100 MG capsule Other Relevant Orders XR Knee 3 Views Bilateral Other Visit Diagnoses Encounter for immunization Relevant Orders FLU VACCINE TRIVALENT HIGH DOSE 3835-4496 (Fluzone) 65 yrs + AUTOMOTIVE PARTS INTERPRETER Resident Attestation: Patient was seen and evaluated by Griselda Gold NP, and Dr. Cody Way . Latvian translation provided by Katherine Garcia documented in this encounter Miscellaneous Notes * Assessment & Plan Note - Griselda Gold NP - 04/30/2025 3:47 PM EDTAssociated Problem(s): Chronic pain of both knees Likely degenerative joint disease. Will start short course of celecoxib (2 wks) and re-evaluate after x-ray results. documented in this encounter Plan of Treatment Upcoming Encounters Date Type Department Care Team (Late st Contact Info) Description 07/07/2025 4:00 PM EST Office Visit [facility] [address] [place] [phone] Name, MD Cody [address] [place] [phone] Scheduled Referrals Name Type Priority Associated Diagnoses Orde r Schedule Referral to Physical Therapy Outpatient Referral Urgent Chronic pain of both knees Expected: 05/02/2025 (Approximate), Expires: 04/30/2026 documented as of this encounter Procedures Procedure Name Priority Date/Time Associated Diagnosis Comments XR KNEE 3 VIEWS BILATERAL Routine 05/02/2025 12:50 PM EDT Chronic pain of both knees documented in this encounter Results * XR Knee 3 Views Bilateral (05/02/2025 12:50 PM EDT) Anatomical Region Laterality Modality Lower Extremities, Knee [facility] 05/02/2025 12:5 0 PM EDT Narrative 05/02/2025 1:07 PM EDT [address] [address] XRay Report Signed Patient: Mary Rich MR#: [id number] 95 : 1945 Acct:[id number] Age/Sex: 79 / F ADM Date: 05/02/25 Loc: HO.HHCX Attending Dr: Cody Way MD Ordering Physician: Cody Way MD Date of Service: 05/02/25 Procedure(s): XR Knee Attila 3V Accession Number(s): [id number] cc: Name,Cody DOWNEY Reason for Exam: pain Exam: X-ray, bilateral knees.XR KNEE 3 VIEWS BILATERAL TECHNIQUE: Three views lower extremity joint, bilateral knees INDICATION: pain COMPARISON: None available. FINDINGS: RIGHT KNEE: There is mild narrowing of the medial patellofemoral joint. Joint spaces are preserved otherwise. Intercondylar tubercles are peaked. There are minute marginal osteophytes involving the medial joint line, patella, and medial trochlea. There is no joint effusion. Calcifications posterior to the distal femur appear to be in the soft tissues in the involved joint capsule and/or tendinous structures. LEFT KNEE: There is minimal narrowing of the lateral patellofemoral joint space. There is also mild narrowing of the medial joint space. There are small marginal osteophytes involving patellofemoral joint, intercondylar spines, and the notch side of the lateral femoral condyle. There is a minute marginal osteophyte involving the medial tibial plateau. Mild soft tissue calcification is visible posterior to the upper margin of the femoral condyles. Likely involving tendonous and/or joint capsular structures. XR/XR Knee Attila 3V IMPRESSION: Right knee: Very mild degenerative changes consistent with osteoarthritis. Left knee: Mild degenerative changes consistent with osteoarthritis. Electronically signed by: Micah Dietz MD 05/02/2025 01:05 PM EDT Dictated By: Micah Dietz MD Signed By: <Electronically signed by Micah Dietz MD in OV> 05/02/25 1305 DD/ 1250 TD/TT: 05/02/25 1258 Fabric Pattern Grader: Procedure Note Donotuseinterpreter, Image - 05/02/[address] [address] XRay Report Signed Patient: Mary Rich EMR#: [id number] [birth year] : 1945cct:[id number] Age/Sex: 79 / FADM Date: 05/02/25 Loc: HO.HHCX Attending Dr: Cody Way MD Ordering Physician: Cody Way MD Date of Service: 05/02/25 Procedure(s): XR Knee Attila 3V Accession Number(s): [id number] cc: Name,Cody DOWNEY Reason for Exam: pain Exam: X-ray, bilateral knees.XR KNEE 3 VIEWS BILATERAL TECHNIQUE: Three views lower extremity joint, bilateral knees INDICATION: pain COMPARISON: None available. FINDINGS: RIGHT KNEE: There is mild narrowing of the medial patellofemoral joint. Joint spaces are preserved otherwise. Intercondylar tubercles are peaked. There are minute marginal osteophytes involving the medial joint line, patella, and medial trochlea. There is no joint effusion. Calcifications posterior to the distal femur appear to be in the soft tissues in the involved joint capsule and/or tendinous structures. LEFT KNEE: There is minimal narrowing of the lateral patellofemoral joint space. There is also mild narrowing of the medial joint space. There are small marginal osteophytes involving patellofemoral joint, intercondylar spines, and the notch side of the lateral femoral condyle. There is a minute marginal osteophyte involving the medial tibial plateau. Mild soft tissue calcification is visible posterior to the upper margin of the femoral condyles. Likely involving tendonous and/or joint capsular structures. XR/XR Knee Attila 3V IMPRESSION: Right knee: Very mild degenerative changes consistent with osteoarthritis. Left knee: Mild degenerative changes consistent with osteoarthritis. Electronically signed by: Micah Dietz MD 05/02/2025 01:05 PM EDT Dictated By: Micah Dietz MD Signed By: <Electronically signed by Micah Dietz MD in OV> 05/02/25 1305 DD/ 1250 TD/TT: 05/02/25 1258 Fabric Pattern Grader: Cody Way MD IMG XR PROCEDURES Final Result documented in this encounter Visit Diagnoses Diagnosis Chronic pain of both knees- Primary Encounter for immunization documented in this encounter Additional Health Concerns Assessment Noted Time PHQ-9 Depression Total Score: 12 02/19/2 025 4:18 PM EST documented as of this encounter Care Teams Manager Of Recruiting Relationship Specialty Start Date End Date Name, MD [address] [place] [address] PCP - General Family Medicine 07/31/18 documented as of this encounter
--- NOTE | ~2025-05-02 | XR_ITS ---
Exam: X-ray, bilateral knees.XR KNEE 3 VIEWS BILATERAL TECHNIQUE: Three views lower extremity joint, bilateral knees INDICATION: pain COMPARISON: None available. FINDINGS: RIGHT KNEE: There is mild narrowing of the medial patellofemoral joint. Joint spaces are preserved otherwise. Intercondylar tubercles are peaked. There are minute marginal osteophytes involving the medial joint line, patella, and medial trochlea. There is no joint effusion. Calcifications posterior to the distal femur appear to be in the soft tissues in the involved joint capsule and/or tendinous structures. LEFT KNEE: There is minimal narrowing of the lateral patellofemoral joint space. There is also mild narrowing of the medial joint space. There are small marginal osteophytes involving patellofemoral joint, intercondylar spines, and the notch side of the lateral femoral condyle. There is a minute marginal osteophyte involving the medial tibial plateau. Mild soft tissue calcification is visible posterior to the upper margin of the femoral condyles. Likely involving tendonous and/or joint capsular structures. XR/XR Knee Attila 3V IMPRESSION: Right knee: Very mild degenerative changes consistent with osteoarthritis. Left knee: Mild degenerative changes consistent with osteoarthritis. Electronically signed by: Micah Dietz MD 05/02/2025 01:05 PM EDT
--- OUTSIDE RECORDS SUMMARY | 2025-05-02 13:12 | XMS_ITS ---
Author Name MS. Akbar Moralez Address [address] [place] [address] Phone [phone] [facility] Care Team Providers Care Reinforcing Bar Setter Name Role Phone Jennifer Berman Unavailable [phone] Reason for Referral Not Available Allergies, adverse [...] of Service Diagnosis/Co mplaint No Data Available [facility], ([place] 06/15/2023 Type 2 diabetes w diabetic peripheral angiopath w/o gangreneType 2 diabetes mellitus with hyperglycemiaEssential (primary) hypertensionDizziness and giddinessGastro-esophageal reflux disease without esophagitisMajor depressive disorder, single episode, in full remissionUnspecified osteoarthritis, unspecified siteLow back pain, unspecifiedOther chronic pain No Data Available [facility] 06[place]15/2023 No Data Available [facility] 06[place]2023 No Data Available [facility]2023 No Data Available [facility] 06[place]2023 No Data Available [facility] 06/[place]2023 No Data Available [facility] 06/[place]2023 No Data Available [facility] 06/15/2023 No Data Available [facility]/15/2023 Estab. patient 20-29min; 1 stable chronic or 2 minor; add add modifier 95 for video, modifier 93 for phone [facility] [place] 06/26/2023 Type 2 diabetes w diabetic peripheral angiopath w/o gangreneType 2 diabetes mellitus with hyperglycemiaEssential (primary) hypertensionDizziness and giddinessGastro-esophageal reflux disease without esophagitisMajor depressive disorder, single episode, in full remissionUnspecified osteoarthritis, unspecified siteLow back pain, unspecifiedOther chronic pain Estab. patient 20-29min; 1 stable chronic or 2 minor; add add modifier 95 for video, modifier 93 for phone [facility] [place] 06[place]26/2023 Estab. patient 20-29min; 1 stable chronic or 2 minor; add add modifier 95 for video, modifier 93 for phone [facility] [place] 06/26/2023 Estab. patient 20-29min; 1 stable chronic or 2 minor; add add modifier 95 for video, modifier 93 for phone [facility] [place] 06/26/2023 Estab. patient 20-29min; 1 stable chronic or 2 minor; add add modifier 95 for video, modifier 93 for phone [facility], [place] 06/26/2023 Vital Signs Date of Collection [...] date Servicing provider Phone# No Data Available [id number] 2023-06-15 No Data Available No Data Available [...] 95 for video, modifier 93 for phone [id number] 2023-06-26 No Data Available No Data Availa [...]
--- OUTSIDE RECORDS SUMMARY | 2025-05-02 13:12 | XMS_ITS | Encounter Summary ---
Author Organization [employer] Address [address] [facility] 7t [place] [address] Care Team Providers Care Nut Orchardist Name Role Phone Name, Cody DOWNEY Primary Care Provider Reason for Visit * Reason Comments Med Refill Encounter Details Date Type Department Care Team ([facility] st Contact Info) Description 09/28/2023 Refill [facility] [address] [place], [place] [phone] Laurel Roberts ANP [address] [place], [place] [phone] Vitamin D deficiency Social History Tobacco Use [...] as of this encounter Plan of Treatment Upcoming Encounters Date Type Department Care Team (Late st Contact Info) Description 07/07/2025 4:00 PM EST Office Visit [facility] [address] [place] [address] Name, MD Cody [address] [place] [address] documented as of this encounter Visit Diagnoses Diagnosis Vitamin D deficiency documented in this encounter Additional Health Concerns Assessment Noted Time PHQ-9 Depression Total Score: 0 01/11/20 23 1:41 PM EDT documented as of this encounter Care Teams Nut Orchardist Relationship Specialty Start Date End Date Name, MD Cody [address] [place] [address] PCP - General Family Medicine 07/31/18 documented as of this encounter
--- OUTSIDE RECORDS SUMMARY | 2025-05-02 13:12 | XMS_ITS | Encounter Summary ---
Author Organization [employer] Address 75 [facility] 7t [place] [address] Care Team Providers Care Padder Name Role Phone Name, Cody DOWNEY Primary Care Provider [phone] Encounter Details Date Type Department Care Team ([facility] st Contact Info) Description 07/15/2024 Telephone [facility] 230 [place], [place] [phone] Name, MD Cody 230 [place] [address] Social History Tobacco Use Types Packs/Day Years [...] Description 07/07/2025 4:00 PM EST Office Visit [facility] [address] [place] [address] NameCody MD 230 [place] [address] documented as of this encounter Visit Diagnoses Not on filedocumented in this encounter Additional Health Concerns Assessment Noted Time PHQ-9 Depression Total Score: 24 024 9:20 AM EDT documented as of this encounter Care Teams Padder Relationship Specialty Start Date End Date NameCody MD [address] [place] [address] PCP - General Family Medicine 07/31/18 documented as of this encounter
--- OUTSIDE RECORDS SUMMARY | 2025-05-02 13:12 | XMS_ITS | Encounter Summary ---
Author Organization [employer] Address [address] [facility] 7t [place] [address] Care Team Providers Care Water Leak Repairer Name Role Phone Name, Cody DOWNEY Primary Care Provider [phone] Reason for Visit * Reason Comments Med Refill Encounter Details Date Type Department Care Team ([facility] st Contact Info) Description 04/08/2025 Refill [facility] [address] [place], [place] [phone] Name, MD Cody 230 [place] [address] Social History Tobacco Use Types Packs/Day Years [...] Description 07/07/2025 4:00 PM EST Office Visit [facility] 230 [place] [address] Name, MD Cody 230 [place] [address] documented as of this encounter Visit Diagnoses Not on filedocumented in this encounter Additional Health Concerns Assessment Noted Time PHQ-9 Depression Total Score: 12 025 4:18 PM EST documented as of this encounter Care Teams Water Leak Repairer Relationship Specialty Start Date End Date Name, MD Cody [address] [place] [address] PCP - General Family Medicine 07/31/18 documented as of this encounter
--- OUTSIDE RECORDS SUMMARY | 2025-05-02 13:12 | XMS_ITS | Encounter Summary ---
Author Organization [employer] Address 75 [facility] 7t [place] [address] Care Team Providers Care Net Repairer Name Role Phone Name, Cody DOWNEY Primary Care Provider [phone] Reason for Visit * Reason Onset Date Comments Appointment Request 08/12/2022 Encounter Details Date Type Department Care Team ([facility] st Contact Info) Description 08/12/2022 Telephone [facility] 230 [place], [place] [phone] Name, MD Cody 230 [place] [address] Appointment Request Social History Tobacco Use Types [...] 09/07/22 at 9:30 Please contact pt at [phone] documented in this encounter Plan of Treatment Upcoming Encounters Date Type Department Care Team (Late st Contact Info) Description 07/07/2025 4:00 PM EST Office Visit [facility] [address] [place] [address] Name, MD Cody [address] [place] [address] documented as of this encounter Visit Diagnoses Not on filedocumented in this encounter Care Teams Net Repairer Relationship Specialty Start Date End Date Name, MD Cody [address] [place] [address] PCP - General Family Medicine 07/31/18 documented as of this encounter
--- OUTSIDE RECORDS SUMMARY | 2025-05-02 13:12 | XMS_ITS | Encounter Summary ---
Author Organization [employer] Address 75 [facility] 7t [place] [address] Care Team Providers Care Jetting Machine Operator Name Role Phone Name, Cody DOWNEY Primary Care Provider [phone] Reason for Visit * Reason Onset Date Comments Med Refill 04/22/2024 Encounter Details Date Type Department Care Team ([facility] st Contact Info) Description 04/22/2024 Telephone [facility] 230 [place], [place] [phone] Name, MD Cody 230 [place] [address] Med Refill Social History Tobacco Use Types [...] 1:34 PM EDT Medication was sent to [facility] on 03/18/24 with 3 refills. * Telephone Encounter - Chaim Farfan - 04/22/2024 1:31 PM EDT TC from pt requesting medication refill. Medications needing refill : Trulicity 1.5 MG/0.5ML solution pen-injector To be sent to: [facility] - [place], [place] - [address] documented in this encounter Plan of Treatment Upcoming Encounters Date Type Department Care Team (Late st Contact Info) Description 07/07/2025 4:00 PM EST Office Visit [facility] [address] [place] [address] Name, MD Cody [address] [place] [address] documented as of this encounter Visit Diagnoses Not on filedocumented in this encounter Additional Health Concerns Assessment Noted Time PHQ-9 Depression Total Score: 24 024 9:20 AM EDT documented as of this encounter Care Teams Jetting Machine Operator Relationship Specialty Start Date End Date Name, MD Cody [address] [place] [address] PCP - General Family Medicine 07/31/18 documented as of this encounter
--- OUTSIDE RECORDS SUMMARY | 2025-05-02 13:12 | XMS_ITS | Encounter Summary ---
Author Organization [employer] Address 75 [facility] 7t [place] [address] Care Team Providers Care Senior Devops Engineer Name Role Phone Name, Cody DOWNEY Primary Care Provider [phone] Reason for Visit * Reason Onset Date Comments Call Back Request 08/23/2023 Encounter Details Date Type Department Care Team ([facility] st Contact Info) Description 08/23/2023 Telephone [facility] 230 [place] [address] Name, MD Cody [address] [place], [place] [phone] Call Back Request Social History Tobacco Use [...] - 08/23/2023 11:46 AM EST T/C to [phone] Edel WIRE SAW OPERATOR from [place] call agency, States she does head to toe assessment and med. Reconciliation for pt. In her recent visit she observed that pt. Is taking Mirtazapine, Tylenol and Excedrin. As per WIRE SAW OPERATOR,she visit pt. Two years ago and then also pt. Was taking Tylenol and Excedrin. Pt. Is developing tolerance to the medication, also medication is also not helping For sleep. So WIRE SAW OPERATOR is concerning that diphenhydramine is interacting with Mirtazapine. So WIRE SAW OPERATOR is asking help from PCP.Also stated that [...] form physical therapy. Please contact Edel at [phone]. documented in this encounter Plan of Treatment Upcoming Encounters Date Type Department Care Team (Late st Contact Info) Description 07/07/2025 4:00 PM EST Office Visit [facility] 230 [place] [address] Name, MD Cody [address] [place] [address] documented as of this encounter Visit Diagnoses Not on filedocumented in this encounter Additional Health Concerns Assessment Noted Time PHQ-9 Depression Total Score: 0 01/11/20 23 1:41 PM EDT documented as of this encounter Care Teams Senior Devops Engineer Relationship Specialty Start Date End Date Name, MD Cody [address] [place] [address] PCP - General Family Medicine 07/31/18 documented as of this encounter
--- OUTSIDE RECORDS SUMMARY | 2025-05-02 13:12 | XMS_ITS | Encounter Summary ---
Author Organization [email or web address] Address [address] [facility] 7t [place] [address] Care Team Providers Care Circle Cutting Saw Operator Name Role Phone Name, Cody DOWNEY Primary Care Provider [phone] Reason for Visit * Reason Onset Date Comments Nurse Triage 04/29/2025 Encounter Details Date Type Department Care Team ([facility] st Contact Info) Description 04/29/2025 Telephone [facility] 230 [place], [place] [phone] Name, MD Cody 230 [place], [place] [phone] Nurse Triage Social History Tobacco Use Types Packs/Day Years [...] encounter Miscellaneous Notes * Telephone Encounter - China Quesada RN - 04/29/2025 11:06 AM EDT called pt to triage, spoke to pt through [employer] Manager. pt states 4 days duration of aching pain and swelling of both knees. pt states thinks it is arthritis as she has it in other places. pt denies known injury, severe swelling, redness, fever, or other associated symptoms. given appt Monday 04/30 with blue team provider at 3:00. preceptor for provider is the pt's PCP as well. advised home care: ret, fluids, ice, heat, OTC pain reliever as needed, OTC pain cream, and call back if worsening or new concerns. insurance verified. Protocol Used: Knee Pain (Adult) Protocol-Based Disposition: See in Office or Video Visit within 3 Days Video visit offer not recorded Positive Triage Question: * Patient wants to be seen * All higher-acuity triage questions were negative Care Advice Discussed: * Reassurance and Education - Knee Pain * Pain Medicines * Using Heat for Pain * Reasons To Call Back - Severe pain lasts more than 2 hours after pain medicine - Moderate pain (interferes with normal activities, limping) lasts over 3 days - Mild pain lasts over 7 days - Signs of infection occur (spreading redness, warmth, fever) - You become worse * Telephone Encounter - Dominiquesabine Alexa - 04/29/2025 10:32 AM EDT Symptom: Knee Pain - Not From Injury Outcome: Schedule an urgent appointment (within 1 hour) or talk to a nurse or provider soon Reason: Severe pain now The caller accepted this outcome. Contact pt at [phone] (danish) documented in this encounter Plan of Treatment Upcoming Encounters Date Type Department Care Team (Late st Contact Info) Description 07/07/2025 4:00 PM EST Office Visit [facility] [address] [place] [address] Name, MD Cody [address] [place] [address] documented as of this encounter Visit Diagnoses Not on filedocumented in this encounter Additional Health Concerns Assessment Noted Time PHQ-9 Depression Total Score: 12 09/18/ 025 4:18 PM EST documented as of this encounter Care Teams Circle Cutting Saw Operator Relationship Specialty Start Date End Date NameCody MD [address] [place] [address] PCP - General Family Medicine 07/31/18 documented as of this encounter
--- OUTSIDE RECORDS SUMMARY | 2025-05-02 13:12 | XMS_ITS | Encounter Summary ---
Author Organization [id number] Address [address] [facility] 7t [place] [address] Care Team Providers Care Cafeteria Worker Name Role Phone Name, Cody DOWNEY Primary Care Provider [phone] Reason for Visit * Reason Onset Date Comments Med Refill 04/15/2024 Encounter Details Date Type Department Care Team ([facility] st Contact Info) Description 04/15/2024 Telephone [facility] 230 [place], [place] [phone] Name, MD Cody [address] [place] [address] Med Refill Social History Tobacco Use Types [...] 7.5 MG tablet To be sent to: [facility] - [place], [place] - [address] documented in this encounter Plan of Treatment Upcoming Encounters Date Type Department Care Team (Late st Contact Info) Description 07/07/2025 4:00 PM EST Office Visit [facility] [address] [place] [address] Name, MD Cody [address] [place] [address] documented as of this encounter Visit Diagnoses Not on filedocumented in this encounter Additional Health Concerns Assessment Noted Time PHQ-9 Depression Total Score: 24 024 9:20 AM EDT documented as of this encounter Care Teams Cafeteria Worker Relationship Specialty Start Date End Date Name, MD Cody [address] [place] [address] PCP - General Family Medicine 07/31/18 documented as of this encounter
--- OUTSIDE RECORDS SUMMARY | 2025-05-02 13:12 | XMS_ITS | Clinical Summary ---
Author Organization [employer] Address [address] [facility] 7t [place] [address] Care Team Providers Care Residential Tech Name Role Phone Name, Cody DOWNEY Primary Care Provider [phone] Allergies Active Allergy Reactions Criticality Noted Date Comments Carbamazepine Headache High 10/30/2020 Paroxetine 10/23/2017 Medications * This document contains information received from the source organization and may not represent a complete record from that organization. meclizine (Antivert) 25 MG tabletIndicatio ns:Vertigo Take 1 tablet by mouth 3 times every day as needed 60 tablet 2 02/26/20 24 Active traZODone (Desyrel) 50 MG tablet Take 1 tablet (50 mg) by mouth at bedtime. 30 tablet 2 02/26/20 24 Active Jardiance 10 MG TAKE 1 TABLET (10 MG) BY MOUTH IN THE MORNING. 30 tablet 10 06/04/20 24 Active glucose blood (OneTouch Ultra) test stripIndication s:Type 2 diabetes mellitus with other specified complication, without long-term current use of insulin (HCC) 1 each by Other route 3 times daily. 100 each 07/23/20 24 Active Blood Glucose Monitoring Suppl (ONE TOUCH ULTRA 2) w/Device kitIndications: Type 2 diabetes mellitus with other specified complication, without long-term current use of insulin (HCC) 1 each 3 times daily. Use to check Blood sugar by fingerstick route TID 1 kit 07/23/20 24 Active Lancets (onetouch ultrasoft) lancetsIndicati ons:Type 2 diabetes mellitus with other specified complication, without long-term current use of insulin (HCC) 1 each by Other route 3 times daily. 100 each 07/23/20 24 Active Blood Pressure Monitor miscIndications :Essential hypertension 1 each Once per day. Use to check BP at home daily 1 each 07/23/20 24 Active [place]-3 Fatty Acids (FISH OIL PO) Take 200 mg by mouth Once per day. OTC Active Cyanocobalamin (HM Super Vitamin B12) 2500 MCG chewable tablet Chew 1 tablet Once per day. OTC Active Magnesium 200 MG chewable tablet Chew 1 tablet Once per day. OTC Active cetirizine (ZyrTEC) 10 MG tablet Take 1 tablet by mouth if needed each day for allergies. OTC Active losartan-hydroC HLOROthiazide (Hyzaar) 100-25 MG tablet TAKE 1 TABLET BY MOUTH IN THE MORNING. 90 tablet 3 11/08/19 25 Active metFORMIN (Glucophage) 1000 MG tablet TAKE 1 TABLET (1,000 MG) BY MOUTH EVERY 12 (TWELVE) HOURS. 180 tablet 3 11/08/19 25 Active tiZANidine (Zanaflex) 2 MG tablet Take 1 tablet (2 mg) by mouth every 8 (eight) hours if needed for muscle spasms for up to 10 days. 30 tablet 02/04/20 25 Active cholecalciferol (Vitamin D3) 25 MCG (1000 UT) tabletIndicatio ns:Vitamin D deficiency TAKE 1 TABLET BY MOUTH EVERY DAY 90 tablet 2 02/19/20 25 Active omeprazole (PriLOSEC) [address] capsule TAKE 1 CAPSULE (40 MG) BY MOUTH BEFORE BREAKFAST. 30 capsule 2 03/06/20 25 Active Mounjaro 5 MG/0.5ML solution auto-injector INJECT 5 MG UNDER THE SKIN 1 (ONE) TIME PER WEEK. 2 mL 04/24/20 25 Active celecoxib (CeleBREX) 100 MG capsuleIndicati ons:Chronic pain of both knees Take 1 capsule (100 mg) by mouth 2 times daily for 14 days. 28 capsule 04/30/20 25 025 Active Mounjaro 5 MG/0.5ML solution auto-injector INJECT 5 MG UNDER THE SKIN 1 (ONE) TIME PER WEEK. 2 mL 03/11/20 25 025 Discontinued Mounjaro 5 MG/0.5ML solution auto-injector INJECT 5 MG UNDER THE SKIN 1 (ONE) TIME PER WEEK. 2 mL 04/04/20 25 025 Discontinued Active Problems Problem Noted Date Diagnosed Date Chronic pain of both knees 04/30/2025 Assessment & Plan (04/30/2025 3:47 PM EDT): Likely degenerative joint disease. Will start short course of celecoxib (2 wks) and re-evaluate after x-ray results. Encounter for preventive health examination 11/30 Assessment [...] intervention , Patient [facility] as needed, and Patient to reach [...] Health Integration Plan Internal Follow up with I Patient Self Plan Patient to utilize skills provided in intervention , Patient to reach out to [facility] team as needed, and Patient to [...] Encounters Date Type Department Care Team Description 04/30/2025 3:00 PM EDT Office Visit [facility] [address] [place] [address] NameCody MD Chronic pain of both knees (Primary Dx); Encounter for immunization 04/30/2025 Travel 04/29/2025 Telephone [facility] [address] [place] [address] MD Nurse Triage 04/23/2025 Refill [facility] [address] [place] [address] MD 04/23/2025 Telephone [facility] [address] [place] [address] Amarjit Barrera MA may recalls 04/08/2025 Refill [facility] [address] [place], [place] [phone] Cody [address] MD 04/04/2025 Refill [facility] [address] [place] [address] MD 03/10/2025 Refill [facility] [address] [place] [address] Name, MD Cody 03/06/2025 Refill [facility] [address] [place] [address] Name, MD Cody 02/17/2025 Refill [facility] [address] [place] [address] Name, MD Cody Vitamin D deficiency 02/03/2025 2:45 PM EDT Office Visit [facility] [address] [place] [address] Name, MD Cody Type 2 diabetes mellitus with other specified complication, without long-term current use of insulin ([facility]) (Primary Dx); Chronic low back pain without sciatica, unspecified back pain laterality; Transaminitis 02/03/2025 Refill [facility] [address] [place] [address] Name, MD Cody 02/03/2025 Travel 01/30/2025 Telephone [facility] [address] [place] [address] Name, MD Cody Chart Prep from Last 3 Months Immunizations Immunization Administration Dates Next Due Hep B, adult 03/24/2010,07/21/2009 Influenza High-dose Quadriva lent Preservative Free 05/30/2023,05/12/2022,05/03/2021 Influenza Quadrivalent Adjuvanted 05/21/2020 Influenza injectable quadriv alent IIV4 with preservative 03/14/2018,04/06/2017 Influenza injectable quadriv alent preservative free 04/17/2019 Influenza, High Dose Seasona l, Preservative Free 04/30/2025,03/26/2018,03/07/2017 Influenza, IIV3, injectable 05/03/2012,0 03/18/2011,05/27/2010,05/05,07/01/2008,05/09/2007,07/18/2006 Influenza, seasonal, [...] Mass Index 25.22 04/30/2025 2:51 PM EDT Plan of Treatment Upcoming Encounters Date Type Department Care Team (Late st Contact Info) Description 07/07/2025 4:00 PM EST Office Visit [facility] [address] [place] [phone] Name, MD Cody [address] [place] [phone] Health Maintenance Due Date Last Done Comments Alcohol/Substance Use Screening 1957 Hepatitis B Vaccines (3 of 3 - 19+ 3-dose series) 05/19/2010 03/24/2010, 07/21/2009 Depression Monitoring 03/18/2025 09/18/2024, 025 COVID-19 Vaccine ( season) 2025 05/12/2022, 12/17/2021, 12/17/2021, Additional history exists Diabetes: Hemoglobin A1C 08/06/2025 025, 09/18/2024, 12/28/2023, Additional history exists Eye Exam 09/19/2025 09/19/2023 Diabetes: Urine Protein Screening 09/30/2025 09/30/2024, 01/10/2023, 05/25/2022, Additional history exists Lipid Panel 09/30/2025 09/30/2024, 06/09/2023, 09/09/2022, Additional history exists SDOH Screening 01/24/2026 01/24/2025 Diabetes: Foot Exam 02/03/2026 02/03/2025, 02/03/2025, 02/03/2025, Additional history exists Tobacco Screening 04/30/2026 04/30/2025 DTaP/Tdap/Td Vaccines (3 - Td or Tdap) 06/09/2027 06/09/2017, 03/24/2010 Zoster Vaccines Completed 03/31/2021, 11/29, 04/24/2013 Pneumococcal Vaccine: 50+ Years Completed 01/02/2024, 06/09/2017, 12/10/2015, Additional history exists RSV Patients and Patients Aged 60 years or older Completed 01/02/2024 Hepatitis C Screening Completed 02/26/2024 Influenza Vaccine Completed 04/30/2025, , 05/30/2023, Additional history exists HIB Vaccines Aged Out [...] patient's age to complete this topic Meningococcal B Vaccine Aged Out No l onger eligible based on patient's age to complete [...] PM EDT Chronic pain of both knees COMPREHENSIVE METABOLIC PANEL Routine 02/03/2025 3:21 PM EDT Transaminitis POCT GLYCATED HEMOGLOBIN, TOTAL Routine 02/03/2025 2:44 PM EDT Type 2 diabetes mellitus with other specified complication, without long-term current use of insulin (CMS/HCC) POCT GLUCOSE Routine 02/03/2025 2:43 PM EDT Type 2 diabetes mellitus with other specified complication, without long-term current use of insulin (CMS/HCC) ALBUMIN, RANDOM URINE W/CREATININE Routine 09/30/2024 10:43 AM EST Type 2 diabetes mellitus with other specified complication, without long-term current use of insulin (CMS/HCC) Constipation, unspecified constipation type LIPID PANEL, STANDARD Routine 09/30/2024 10:43 AM EST Type 2 diabetes mellitus with other specified complication, without long-term current use of insulin (CMS/HCC) Constipation, unspecified constipation type HEPATITIS C AB W/REFL TO HCV RNA, QN, PCR Routine 02/26/2024 11:15 AM EDT Type 2 diabetes mellitus with other specified complication, without long-term current use of insulin (CMS/HCC) Anxiety Transaminitis HM DIABETES EYE EXAM Routine 09/19/2023 from Last 3 Months or Most Recently Relevant to Health Maintenance Results * XR Knee 3 Views Bilateral (05/02/2025 12:50 PM EDT) Anatomical Region Laterality Modality Lower Extremities, Knee Bilateral Radiogra phic Imaging 05/02/2025 12:5 0 PM EDT Narrative 05/02/2025 1:07 PM EDT [address] [address] XRay Report Signed Patient: Mary Rich MR#: [id number] [birth year] : 1945 Acct:[id number] Age/Sex: 79 / F ADM Date: 05/02/25 Loc: HO.HHCX Attending Dr: Cody Way MD Ordering Physician: Cody Way MD Date of Service: 05/02/25 Procedure(s): XR Knee Attila 3V Accession Number(s): [id number] cc: Seamus,Cody DOWNEY Reason for Exam: pain Exam: X-ray, [...] 05/02/25 1305 DD/ 1250 TD/TT: 05/02/25 1258 Audit Manager: Procedure Note Donotkrystainterpreter, Image - 05/02/[address] [address] XRay Report Signed Patient: Mary Rich EMR#: [id number] 95 : 1945cct:[id number] Age/Sex: 79 / FADM Date: 05/02/25 Loc: HO.HHCX Attending Dr: Cody Way MD Ordering Physician: Cody Way MD Date of Service: 05/02/25 Procedure(s): XR Knee Attila 3V Accession Number(s): [id number] cc: Name,Cody DOWNEY Reason for Exam: pain [...] 05/02/25 1305 DD/ 1250 TD/TT: 05/02/25 1258 Audit Manager: Cody Way MD IM XR PROCEDURES Final Result * (ABNORMAL) Comprehensive Metabolic Panel (02/03/2025 3:21 PM EDT) Sodium 140 135 - 145 mmol/L [facility] Potassium 4.1 3.3 - 5.1 mmol/L [facility] Chloride 103 96 - 108 mmol/L [facility] Carbon Dioxide 27 22 - 29 mmol/L [facility] Anion Gap 14 12 - 20 [facility] Urea Nitrogen (BUN) 24(H) 9 - 16 mg/dL [facility] Creatinine, Serum 0.87 0.5 - 1.4 mg/dL [facility] Estimated Glomerular Filt Rate >60 [facility] Comment:Chronic Kidney Disea se: Estimated GFR < 60 mL/min/[id number] Kidney Disease: Estimated GFR < 15 mL/min/1.73m2 Glucose 174(H) 60 - 115 mg/dL [facility] Calcium 9.5 8.4 - 10.2 mg/dL [facility] Bilirubin, Total 0.2 0.0 - 1.0 mg/dL [facility] Aspartate Amino Transferase 27 5 - 31 U/L [facility] Alanine Aminotransferase 30 0 - 31 U/L [facility] Total Protein 7.5 6.5 - 8.0 g/dL [facility] Albumin Level 4.5 3.5 - 5.0 g/dL [facility] Alkaline Phosphatase 115 39 - 117 U/L [facility] Blood Venous blood specimen / Unknown 02/03/2025 3:21 PM EDT 02/03/2025 5:05 PM EDT us Cody Name LAB BLOOD ORDERABLES Final Resul t [facility] [address] [place] [phone] * (ABNORMAL) POCT HGB A1C (02/03/2025 2:44 PM EDT) Hemoglobin A1C 6.9(A) 4.0 - 5.7 % QC Media Lot # [id number] Lot# Expiration Date Blood 02/03/2025 2:[address]T us Cody [address] MD POINT OF CARE TEST ENTER/EDIT OR DERABLES Final Result * (ABNORMAL) POCT Glucose (02/03/2025 2:43 PM EDT) Glucose Blood, POC 212(A) 60 - 200 mg/dL QC Media Lot # [id number] Lot# Expiration Date Blood Capillary blood specimen / Unknown 02/03/2025 2:[address]T us Cody Way MD POINT OF CARE TEST ENTER/EDIT OR DERABLES Final Result * Albumin, Random Urine W/Creatinine (09/30/2024 10:43 AM EST) Creatinine, Urine 95.40 mg/dL [facility] Microalbumin Urine 6.0 mg/L [facility] Microalbum Creatinine Ratio Ur 6.2 <30 ug/mg cr [facility] Comment:Albumin/Creatinine R atio Reference Ranges: Normal: < 30 ug/mg creatinine Microalbuminuria: 30 - 300 ug/mg creatinineClinical Albuminuria: > 300 ug/mg creatinine Urine (Urine, Random) 09/30/2024 10:43 AM EST 09/30/2024 11:32 AM EST us Cody [address] MD LAB URINE ORDERABLES Final Resul t [facility] [address] [place] [phone] * Lipid Panel, Standard (09/30/2024 10:43 AM EST) Triglycerides 97 <150 mg/dL [facility] Comment:Desirable Triglyceri de: less than 150 mg/dLBorderline High Triglyceride 150-199 mg/dLHigh Triglyceride: 200-499 mg/dLVery High Triglyceride: greater than or equal to 5OO mg/dL Cholesterol 140 <200 mg/dL [facility] Comment:Desirable Cholestero l: less than 200 mg/dLBorderline High Cholesterol: 200-239 mg/dLHigh Cholesterol: greater than 239 mg/dL LDL Cholesterol Calculated 73 <100 mg/dL [facility] Comment:Desirable LDL: less than 100 mg/dLNear Optimal/Above Optimal LDL: 110- 129 mg/dLBorderline High LDL: 130-159 mg/dLHigh LDL: 160-189 mg/dLVery High LDL: greater than or equal to 190 mg/dL HDL Cholesterol 48 >40 mg/dL [facility] Comment:Desirable HDL: great er than 40 mg/dL Note: This HDL assay may give artificially low results in patients with liver disease. Blood Venous blood specimen / Unknown 09/30/2024 10:43 AM EST 09/30/2024 11:40 AM EST us Cody [address] MD LAB BLOOD ORDERABLES Final Resul t Performing Organization Address [facility] Co de Phone Number [facility] [address] [place] [phone] * Hepatitis C Antibody with Reflex to HCV, RNA, Quantitative, Real-Time PCR (02/26/2024 11:15 AM EDT) Hepatitis C Antibody Nonreactive Nonreactive [facility] Comment:Antibodies to HCV no t detected; does not exclude early acuteHCV infection. Blood Venous blood specimen / Unknown 02/26/2024 11:15 AM EDT 02/26/2024 1:[address] us Cody [address] MD LAB BLOOD ORDERABLES Final Resul t Performing Organization Address [facility] Co de Phone Number [facility] [address] [place] [phone] * Diabetes Eye Exam (09/19/2023) Eye Exam Normal Normal, BIRADS 0 , BIRADS 1 , BIRADS 2, BIRADS 3 , BIRADS 4+ us Cody Way MD HEALTH MAINTENANCE Final Result from Last 3 Months or Most Recently Relevant to Health Maintenance Insurance [facility] STANDARD [facility] OPTIONS (HMO D-SNP) Care Teams Residential Tech Relationship Specialty Start Date End Date Name, MD Cody [address] [place] [address] PCP - General Family Medicine 07/31/18
--- OUTSIDE RECORDS SUMMARY | 2025-05-02 13:12 | XMS_ITS | Encounter Summary ---
Author Organization [employer] Address [address] [facility] 7t [place] [address] Care Team Providers Care Ship'S Captain Name Role Phone Name, Cody DOWNEY Primary Care Provider [phone] Encounter Details Date Type Department Care Team (Latest Contact Info) Description 04/30/2025 Travel Social History Tobacco Use Types Packs/Day [...] Description 07/07/2025 4:00 PM EST Office Visit [facility] [address] [place] [phone] Name, MD Cody [address] [place] [phone] documented as of this encounter Visit Diagnoses Not on filedocumented in this encounter Additional Health Concerns Assessment Noted Time PHQ-9 Depression Total Score: 12 025 4:18 PM EST documented as of this encounter Care Teams Ship'S Captain Relationship Specialty Start Date End Date Name, MD Cody [address] [place] [phone] PCP - General Family Medicine 07/31/18 documented as of this encounter
--- OUTSIDE RECORDS SUMMARY | 2025-05-02 13:12 | XMS_ITS | Encounter Summary ---
Author Organization [employer] Address [address] [place] [address] 7 [place] [address] Care Team Providers Care Marine Firer Name Role Phone Name, Cody DOWNEY Primary Care Provider [phone] Reason for Visit * Reason Onset Date Comments Med Refill Home Care Services 10/06/2022 I called the pt regarding an Appeal Decision Letter from [facility], that was dropped off at [facility]. The letter does not include anything for the PCP to sign off on. There is a Fair Hearing Request Form, that the pt may complete and return to [facility], if she wishes to have a hearing with them. The number [phone] is not in service at this time. I left a msg at [phone], asking her to return my call at [phone], so that I could give her the above information. Encounter Details Date Type Department Care Team (Late st Contact Info) Description 10/06/2022 Refill [facility] [address] [place] [address] Name, MD Cody [address] [place] [address] Depression, unspecified depression type Social History Tobacco [...] Recorded In the last 10 days, have danita u been in contact with someone who was confirmed or suspected to have Coronavirus/COVID-19? No / Unsure 09/09/2022 9:39 AM EST documented as of this encounter Plan of Treatment Upcoming Encounters Date Type Department Care Team (Late st Contact Info) Description 07/07/2025 4:00 PM EST Office Visit [facility] [address] [place] [phone] Name, MD Cody [address] [place] [phone] documented as of this encounter Visit Diagnoses Diagnosis Depression, unspecified depression type documented in this encounter Care Teams Marine Firer Relationship Specialty Start Date End Date Name, MD Cody [address] [place] [phone] PCP - General Family Medicine 07/31/18 documented as of this encounter
== END 2025-05-02 12:35 | disposition home or self-care (01) ==
LOC: HO.HHCX 12:34
PROVIDERS: PCP Internal Medicine Geriatric Medicine; Visit Provider Internal Medicine Geriatric Medicine
DX: M25.561 Pain in right knee (principal); M25.562 Pain in left knee; G89.29 Other chronic pain
CPT/HCPCS: 73562

== ENCOUNTER → 2025-05-02 12:45 | Outpatient (BNV) | payer OTHER, SELFPAY | PROVIDERS: PCP Internal Medicine Geriatric Medicine; Visit Provider Radiology Diagnostic Radiology | DX: M25.561 Pain in right knee (principal); M25.562 Pain in left knee | CPT/HCPCS: 73562 ==

== ENCOUNTER 2025-06-05 17:57 | Outpatient (REF) | payer OTHER, SELFPAY ==
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
--- OUTSIDE RECORDS SUMMARY | 2025-06-05 18:51 | XMS_ITS ---
Author Name MS. Akbar Moralez Address [address] [place] [address] Phone [phone] [facility] Care Team Providers Care [employer] Football Coach Name Role Phone Jennifer Berman Unavailable [phone] Reason for Referral Not Available Allergies, adverse [...] of Service Diagnosis/Co mplaint No Data Available [facility] [place] 06/15/2023 Type 2 diabetes w diabetic peripheral angiopath w/o gangreneType 2 diabetes mellitus with hyperglycemiaEssential (primary) hypertensionDizziness and giddinessGastro-esophageal reflux disease without esophagitisMajor depressive disorder, single episode, in full remissionUnspecified osteoarthritis, unspecified siteLow back pain, unspecifiedOther chronic pain No Data Available [facility] [place] 06/15/2023 No Data Available [facility] [place] 06/15/2023 No Data Available [facility] [place] 06/15/2023 No Data Available [facility] [place] 06/15/2023 No Data Available [facility] [place] 06/15/2023 No Data Available [facility] [place] 06/15/2023 No Data Available [facility] [place] 06/15/2023 No Data Available [facility] [place] 06/15/2023 Estab. patient 20-29min; 1 stable chronic or 2 minor; add add modifier 95 for video, modifier 93 for phone [facility] [place] 06/26/2023 Type 2 diabetes w diabetic peripheral angiopath w/o gangreneType 2 diabetes mellitus with hyperglycemiaEssential (primary) hypertensionDizziness and giddinessGastro-esophageal reflux disease without esophagitisMajor depressive disorder, single episode, in full remissionUnspecified osteoarthritis, unspecified siteLow back pain, unspecifiedOther chronic pain Estab. patient 20-29min; 1 stable chronic or 2 minor; add add modifier 95 for video, modifier 93 for phone [facility] [place] 06/26/2023 Estab. patient 20-29min; 1 stable chronic or 2 minor; add add modifier 95 for video, modifier 93 for phone [facility] [place] 06/26/2023 Estab. patient 20-29min; 1 stable chronic or 2 minor; add add modifier 95 for video, modifier 93 for phone [facility] [place] 06/26/2023 Estab. patient 20-29min; 1 stable chronic or 2 minor; add add modifier 95 for video, modifier 93 for phone [facility], ([place] 06/26/2023 Vital Signs Date of Collection Vitals 2023-06-15 06:17:44 Height - 152.4 cmWei ght - 54.43 kgBody Mass Index (BMI) - 23.44 kg/m2 2023-06-26 08:34:20 Weight - 54.43 kgBod y Mass Index (BMI) - 23.44 kg/m2Pain Scale - 3.0 {score} Social History Social History Social History Observation Description Effec tive Time Current Smoking Status Never smoker 6 Sex Female History of Procedures Procedures Service Procedure code Service date Servicing provider Phone# No Data Available [id number] 2023-06-15 No Data Available No Data Available [...] 95 for video, modifier 93 for phone [id number] 2023-06-26 No Data Available No Data Availa [...]
--- OUTSIDE RECORDS SUMMARY | 2025-06-05 18:52 | XMS_ITS | Encounter Summary ---
Author Organization [employer] Address [address] [facility] [address] [place] [address] Care Team Providers Care Automotive Painter Name Role Phone Name, Cody DOWNEY Primary Care Provider [phone] Reason for Visit * Reason Onset Date Comments Nurse Triage 06/05/2025 Encounter Details Date Type Department Care Team ([facility] st Contact Info) Description 06/05/2025 Telephone [facility] [address] [place], [place] [phone] Name, MD Cody [address] [place], [place] [phone] Nurse Triage Social History Tobacco Use Types [...] encounter Miscellaneous Notes * Telephone Encounter - Alesha Fragoso RN - 06/05/2025 10:22 AM EST Telephone call x3 to pt, no answer, unable to leave voicemail. Other phone number not in service. No HIPAA contact listed. Pt to call back PRN. * Telephone Encounter - Alesha Fragoso RN - 06/05/2025 9:51 AM EST Telephone call x2 to pt in regard to message below. Phone goes straight to voicemail, no VM box setup. * Telephone Encounter - Alesha Fragoso RN - 06/05/2025 9:30 AM EST Telephone call to pt at both numbers, main number does not have voicemail box set up and other number not in service. Will task to call again. * Telephone Encounter - Cody Cope - 06/05/2025 9:15 AM EST Symptom: Urination Pain Outcome: Schedule an urgent appointment (within 1 hour) or talk to a nurse or provider soon Reason: Severe pain now The caller accepted this outcome. Contact pt at [phone] documented in this encounter Plan of Treatment Upcoming Encounters Date Type Department Care Team (Late st Contact Info) Description 07/07/2025 4:00 PM EST Office Visit [facility] [address] [place] [address] Name, MD Cody [address] [place] [phone] documented as of this encounter Visit Diagnoses Not on filedocumented in this encounter Additional Health Concerns Assessment Noted Time PHQ-9 Depression Total Score: 12 09/18/ 025 4:18 PM EST documented as of this encounter Care Teams Automotive Painter Relationship Specialty Start Date End Date Name, MD Cody [address] [place] [address] PCP - General Family Medicine 07/31/18 documented as of this encounter
--- OUTSIDE RECORDS SUMMARY | 2025-06-05 18:52 | XMS_ITS | Encounter Summary ---
Author Organization [employer] Address [address] [facility] [address] [place] [address] Care Team Providers Care Ssds Mk 2 Advanced Operator Name Role Phone Name, Cody DOWNEY Primary Care Provider [phone] Reason for Visit * Reason Onset Date Comments Call Back Request 08/23/2023 Encounter Details Date Type Department Care Team ([facility] st Contact Info) Description 08/23/2023 Telephone [facility] [address] [place] [address] Name, MD Cody [address] [place], [place] [phone] Call Back Request Social History Tobacco Use [...] - 08/23/2023 11:46 AM EST T/C to [phone] Edel WARRANT SERVER from [place] call agency, States she does head to toe assessment and med. Reconciliation for pt. In her recent visit she observed that pt. Is taking Mirtazapine, Tylenol and Excedrin. As per WARRANT SERVER,she visit pt. Two years ago and then also pt. Was taking Tylenol and Excedrin. Pt. Is developing tolerance to the medication, also medication is also not helping For sleep. So WARRANT SERVER is concerning that diphenhydramine is interacting with Mirtazapine. So WARRANT SERVER is asking help from PCP.Also stated that [...] form physical therapy. Please contact Edel at [phone]. documented in this encounter Plan of Treatment Upcoming Encounters Date Type Department Care Team (Late st Contact Info) Description 07/07/2025 4:00 PM EST Office Visit [facility] [address] [place] [address] Name, MD Cody [address] [place] [address] documented as of this encounter Visit Diagnoses Not on filedocumented in this encounter Additional Health Concerns Assessment Noted Time PHQ-9 Depression Total Score: 0 01/11/20 23 1:41 PM EDT documented as of this encounter Care Teams Ssds Mk 2 Advanced Operator Relationship Specialty Start Date End Date Name, MD Cody [address] [place] [address] PCP - General Family Medicine 07/31/18 documented as of this encounter
--- OUTSIDE RECORDS SUMMARY | 2025-06-05 18:52 | XMS_ITS | Clinical Summary ---
Author Organization [employer] Address 75 [facility] 7t [place] [address] Care Team Providers Care Residential Carpet Installer Name Role Phone Name, Cody DOWNEY Primary Care Provider [phone] Allergies Active Allergy Reactions Criticality Noted Date Comments Carbamazepine Headache High 10/30/2020 Other Reaction(s): Not available Paroxetine 10/23/2017 Other Reaction(s): Not available Medications * This document contains information received [...] bedtime. 30 tablet 2 02/26/20 24 Active glucose blood (OneTouch Ultra) test [...] route TID 1 kit 07/23/20 Active Lancets (onetouch ultrasoft) lancetsIndicati ons:Type 2 diabetes mellitus with other specified complication, without long-term current use of insulin (HCC) 1 each by Other route 3 times daily. 100 each 11 07/23/20 24 Active Blood Pressure Monitor miscIndications :Essential hypertension 1 each Once per day. Use to check BP at home daily 1 each 07/23/20 24 Active Shorewood-3 Fatty Acids (FISH OIL PO) Take 200 [...] 1 (ONE) TIME PER WEEK. 2 mL 05/22/20 25 Active Jardiance 10 MG TAKE 1 TABLET (10 MG) BY MOUTH IN THE MORNING. 30 tablet 9 05/30/20 25 Active sulfamethoxazol e-trimethoprim (Bactrim DS) 800-160 MG tablet Take 1 tablet by mouth 2 times daily for 3 days. 6 tablet 06/05/20 25 025 Active Jardiance 10 MG TAKE 1 TABLET (10 MG) BY MOUTH IN THE MORNING. 30 tablet 10 06/04/20 24 025 Discontinued Mounjaro 5 MG/0.5ML solution auto-injector INJECT 5 MG UNDER THE SKIN 1 (ONE) TIME PER WEEK. 2 mL 04/24/20 25 025 Discontinued celecoxib (CeleBREX) 100 MG capsuleIndicati ons:Chronic pain of both knees Take 1 capsule (100 mg) by mouth 2 times daily for 14 days. 28 capsule 04/30/20 25 025 Active Problems Problem Noted Date Diagnosed Date [...] intervention , Patient to reach out to HHC team as needed, and Patient to reach [...] Health Integration Plan Internal Follow up with [facility] Patient Self Plan Patient to utilize skills provided in intervention , Patient to reach out to [facility] team as needed, and Patient [...] Encounters Date Type Department Care Team Description 06/05/2025 2:40 PM EST Office Visit [facility] [address] [place] [address] Maisha Ferrell DO Acute UTI (Primary Dx) 06/05/2025 Travel 06/05/2025 Telephone [facility] [address] [place] [address] MD Nurse Triage 06/05/2025 Telephone [facility] [address] [place] [address] MD Nurse Triage 05/30/2025 Refill [facility] [address] [place] [address] MD 05/22/2025 Refill [facility] [address] [place] [address] MD 04/30/2025 3:00 PM EDT Office Visit [facility] [address] [place] [address] Name, MD Cody Chronic pain of both knees (Primary Dx); Encounter for immunization 04/30/2025 Travel 04/29/2025 Telephone [facility] [address] [place] [address] Name, MD Cody Nurse Triage 04/23/2025 Refill [facility] [address] [place] [address] MD 04/23/2025 Telephone [facility] [address] [place] [address] Amarjit Barrera MA may recalls 04/08/2025 Refill [facility] [address] [place] [address] Name, MD Cody 04/04/2025 Refill [facility] [address] [place] [address] NameCody MD 03/10/2025 Refill [facility] [address] [place] [address] NameCody MD 03/06/2025 Refill [facility] [address] [place] [address] NameCody MD from Last 3 Months Immunizations Immunization Administration [...] oz) 06/05/2025 3:27 P M EST Height 152.4 cm (5') 04/30/2025 2:51 PM EDT Body Mass Index 26.05 04/30/2025 2:51 PM EDT Plan of Treatment Upcoming Encounters Date Type Department Care Team (Late st Contact Info) Description 07/07/2025 4:00 PM EST Office Visit [facility] [address] [place] [address] Name, MD Cody [address] [place] [address] Health Maintenance Due Date Last Done Comments [...] Additional history exists Lipid Panel 09/30/2025 09/30/2024, 06/0 09/2023, 09/09/2022, Additional history exists SDOH Screening 01/24/2026 01/24/2025 Diabetes: Foot Exam 02/03/2026 02/03/2025, 02/03/2025, 02/03/2025, Additional history exists Tobacco Screening 06/05/2026 06/05/2025 DTaP/Tdap/Td Vaccines (3 - Td or Tdap) [...] Routine 06/05/2025 3:29 PM EST Acute UTI XR KNEE 3 VIEWS BILATERAL Routine 05/02/2025 12:50 PM EDT Chronic pain of both knees POCT GLYCATED HEMOGLOBIN, TOTAL Routine 02/03/2025 2:44 PM EDT Type 2 diabetes mellitus with other specified complication, without long-term current use of insulin ([facility]/HCC) ALBUMIN, RANDOM URINE W/CREATININE Routine 09/30/2024 10:43 AM EST Type 2 diabetes mellitus with other specified complication, without long-term current use of insulin (CMS/HCC) Constipation, unspecified constipation type LIPID PANEL, STANDARD Routine 09/30/2024 10:43 AM EST Type 2 diabetes mellitus with other specified complication, without long-term current use of insulin ([facility]) Constipation, unspecified constipation type HEPATITIS C AB W/REFL TO HCV RNA, QN, PCR Routine 02/26/2024 11:15 AM EDT Type 2 diabetes mellitus with other specified complication, without long-term current use of insulin ([facility]/HCC) Anxiety Transaminitis HM DIABETES EYE EXAM Routine 09/19/2023 from Last 3 Months or Most Recently Relevant to Health Maintenance Results * (ABNORMAL) POCT urinalysis dipstick manually resulted (CPT 49408) (06/05/2025 3:29 PM EST) Color, UA Yellow [...] Urine (Urine, Random) 06/05/2025 3:29 PM EST Maishaterry Hollandmartindelmer POINT OF CARE TEST ENTER/JONATHAN T ORDERABLES Final Result * XR Knee 3 Views Bilateral (05/02/2025 12:50 PM EDT) Anatomical Region Laterality Modality Lower Extremities, Knee Bilateral Radiogra phic Imaging 05/02/2025 12:5 0 PM EDT Narrative 05/02/2025 1:07 PM EDT [facility] [address] [place] [address] XRay Report Signed Patient: Mary Rich MR#: [id number] 95 : 1945 Acct:[id number] Age/Sex: 79 / F ADM Date: 05/02/25 Loc: .[facility] Attending Dr: Cody Way MD Ordering Physician: Cody Way MD Date of Service: 05/02/25 Procedure(s): XR Knee Attila 3V Accession Number(s): [id number] cc: Cody Way MD Reason for Exam: pain Exam: X-ray, bilateral [...] consistent with osteoarthritis. Electronically signed by: Micah Deitz MD 05/02/2025 01:05 PM EDT Dictated By: Micah Dietz MD Signed By: <Electronically signed by Micah Dietz MD in OV> 05/02/25 1305 DD/ 1250 TD/TT: 05/02/25 1258 Human Resources Temp: Procedure Note Donotuseinterpreter, Image - 05/02/[address] [address] XRay Report Signed Patient: Mary Rich EMR#: [id number] 95 : 6Acct:[id number] Age/Sex: 79 / FADM Date: 05/02/25 [facility]: Cody Way MD Ordering Physician: Cody Way MD Date of Service: 05/02/25 Procedure(s): XR Knee Attila 3V Accession Number(s): [id number] cc: Cdoy Way MD Reason for Exam: pain Exam: X-ray, bilateral [...] Micah Dietz MD 05/02/2025 01:05 PM EDT RP Dictated By: Micah Dietz MD Signed By: <Electronically signed by Micah Dietz MD in OV> 05/02/25 1305 DD/ 1250 TD/TT: 05/02/25 1258 Human Resources Temp: us Cody Way MD IMG XR PROCEDURES Final Result * (ABNORMAL) POCT HGB A1C (02/03/2025 2:44 PM EDT) Hemoglobin A1C 6.9(A) 4.0 - 5.7 % QC Media Lot # [id number] Lot# Expiration Date Blood 02/03/2025 2:[address]T us Cody [address] MD POINT OF CARE TEST ENTER/EDIT OR DERABLES Final Result * Albumin, Random Urine W/Creatinine (09/30/2024 10:43 AM EST) Creatinine, Urine 95.40 mg/dL [facility] Microalbumin Urine 6.0 mg/L [facility] Microalbum Creatinine Ratio Ur 6.2 <30 ug/mg cr [facility] Comment:Albumin/Creatinine R atio Reference Ranges: Normal: < 30 ug/mg creatinine Microalbuminuria: 30 - 300 ug/mg creatinineClinical Albuminuria: > 300 ug/mg creatinine Urine (Urine, Random) 09/30/2024 10:43 AM EST 09/30/2024 11:32 [address] EST [address] Cody [address] MD LAB URINE ORDERABLES Final Resul t [facility] [address] [place] [phone] * Lipid Panel, Standard (09/30/2024 10:43 AM EST) Triglycerides 97 <150 mg/dL [facility] Comment:Desirable Triglyceri de: less than 150 mg/dLBorderline High Triglyceride 150-199 mg/dLHigh Triglyceride: 200-499 mg/dLVery High Triglyceride: greater than or equal to 5OO mg/dL Cholesterol 140 <200 mg/dL [facility] Comment:Desirable Cholestero l: less than 200 mg/dLBorderline High Cholesterol: 200-239 mg/dLHigh Cholesterol: greater than 239 mg/dL LDL Cholesterol Calculated 73 <100 mg/dL [facility] Comment:Desirable LDL: less than 100 mg/dLNear Optimal/Above Optimal LDL: 110- 129 mg/dLBorderline High LDL: 130-159 mg/dLHigh LDL: 160-189 mg/dLVery High LDL: greater than or equal to 190 mg/dL HDL Cholesterol 48 >40 mg/dL [facility] Comment:Desirable HDL: great er than 40 mg/dL Note: This HDL assay may give artificially low results in patients with liver disease. Blood Venous blood specimen / Unknown 09/30/2024 10:43 AM EST 09/30/2024 11:[address] EST [address] MD LAB BLOOD ORDERABLES Final Resul t [facility] [address] [place] [phone] * Hepatitis C Antibody with Reflex to HCV, RNA, Quantitative, Real-Time PCR (02/26/2024 11:15 AM EDT) Hepatitis C Antibody Nonreactive Nonreactive [facility] Comment:Antibodies to HCV no t detected; does not exclude early acuteHCV infection. Blood Venous blood specimen / Unknown 02/26/2024 11:15 AM EDT 02/26/2024 1:[address] us Cody [address] MD LAB BLOOD ORDERABLES Final Resul t [facility] [address] [place] [phone] [phone] * Diabetes Eye Exam (09/19/2023) [facility] Signature Eye Exam Normal Normal, BIRADS 0 , BIRADS 1 , BIRADS 2, BIRADS 3 , BIRADS 4+ Cody Way MD HEALTH MAINTENANCE Final Result from Last 3 Months or Most Recently Relevant to Health Maintenance [place] [address] [place] [address] STANDARD [facility] (O D-SNP) Care Teams Residential Carpet Installer Relationship Specialty Start Date End Date Name, MD Cody [address] [place] [address] PCP - General Family Medicine 07/31/18
--- OUTSIDE RECORDS SUMMARY | 2025-06-05 18:52 | XMS_ITS | Encounter Summary ---
Author Organization [employer] Address [address] [place] [address] 7 [place] [address] Care Team Providers Care Associate Sales Name Role Phone Name, Cody DOWNEY Primary Care Provider [phone] Reason for Visit * Reason Onset Date Comments Med Refill Home Care Services 10/06/2022 I called the pt regarding an Appeal Decision Letter from [facility], that was dropped off at [facility]. The letter does not include anything for the PCP to sign off on. There is a Fair Hearing Request Form, that the pt may complete and return to [facility], if she wishes to have a hearing with them. The number [phone] is not in service at this time. I left a msg at [phone], asking her to return my call at ext [phone], so that I could give her the above information. Encounter Details Date Type Department Care Team (Late st Contact Info) Description 10/06/2022 Refill [facility] [address] [place] [address] Name, MD Cody [address] [place] [address] Depression, unspecified depression type Social History Tobacco [...] Office Visit [facility] [address] [place] [address] Name, MD Cody [address] [place] [address] documented as of this encounter Visit Diagnoses Diagnosis Depression, unspecified depression type documented in this encounter Care Teams Associate Sales Relationship Specialty Start Date End Date Name, MD Cody [address] [place] [address] PCP - General Family Medicine 07/31/18 documented as of this encounter
--- OUTSIDE RECORDS SUMMARY | 2025-06-05 18:52 | XMS_ITS | Encounter Summary ---
Author Organization [employer] Address 75 [facility] 7t [place] [address] Care Team Providers Care Home Therapy Teacher Name Role Phone Name, Cody DOWNEY Primary Care Provider [phone] Encounter Details Date Type Department Care Team ([facility] st Contact Info) Description 07/15/[address] [facility] [address] [place], [place] [phone] Name, MD Cody [address] [place] [address] Social History Tobacco Use Types Packs/Day Years [...] Description 07/07/2025 4:00 PM EST Office Visit [facility] [address] [place] [address] NameCody MD [address] [place] [address] documented as of this encounter Visit Diagnoses Not on filedocumented in this encounter Additional Health Concerns Assessment Noted Time PHQ-9 Depression Total Score: 24 024 9:20 AM EDT documented as of this encounter Care Teams Home Therapy Teacher Relationship Specialty Start Date End Date NameCody MD [address] [place] [address] PCP - General Family Medicine 07/31/18 documented as of this encounter
--- OUTSIDE RECORDS SUMMARY | 2025-06-05 18:52 | XMS_ITS | Encounter Summary ---
Author Organization [employer] Address 75 [facility] 7t [place] [address] Care Team Providers Care Printed Circuit Boards Beveler Name Role Phone Name, Cody DOWNEY Primary Care Provider [phone] Reason for Visit * Reason Onset Date Comments Appointment Request 08/12/2022 Encounter Details Date Type Department Care Team ([facility] st Contact Info) Description 08/12/2022 Telephone [facility] [address] [place], [place] [phone] Name, MD Cody [address] [place] [address] Appointment Request Social History Tobacco Use Types [...] 09/07/22 at 9:30 Please contact pt at [phone] documented in this encounter Plan of Treatment Upcoming Encounters Date Type Department Care Team (Late st Contact Info) Description 07/07/2025 4:00 PM EST Office Visit [facility] [address] [place] [address] Name, MD Cody [address] [place] [address] documented as of this encounter Visit Diagnoses Not on filedocumented in this encounter Care Teams Printed Circuit Boards Beveler Relationship Specialty Start Date End Date Name, MD Cody [address] [place] [address] PCP - General Family Medicine 07/31/18 documented as of this encounter
--- OUTSIDE RECORDS SUMMARY | 2025-06-05 18:52 | XMS_ITS | Encounter Summary ---
Author Organization [employer] Address 75 [facility] 7t [place] [address] Care Team Providers Care Feeder Catcher Tobacco Name Role Phone Name, Cody DOWNEY Primary Care Provider [phone] Reason for Visit * Reason Onset Date Comments Nurse Triage 06/05/2025 Encounter Details Date Type Department Care Team ([facility] st Contact Info) Description 06/05/2025 Telephone [facility] [address] [place], [place] [phone] Name, MD Cody [address] [place], [place] [phone] Nurse Triage Social History Tobacco Use Types [...] encounter Miscellaneous Notes * Telephone Encounter - Valerie Grimm RN - 06/05/2025 1:59 PM EST Symptom: Urine - Blood In Outcome: Schedule a same-day appointment or talk to a nurse or provider today Reason: Just a small amount of blood and patient feels normal (acts normal) The caller accepted this outcome. Contact pt at [phone] (polish) TC placed to all three numbers on file [place] [id number] [facility] * Telephone Encounter - Chanel Liu - 06/05/2025 11:42 AM EST Symptom: Urine - Blood In Outcome: Schedule a same-day appointment or talk to a nurse or provider today Reason: Just a small amount of blood and patient feels normal (acts normal) The caller accepted this outcome. Contact pt at [phone] (polish) documented in this encounter Plan of Treatment Upcoming Encounters Date Type Department Care Team (Late st Contact Info) Description 07/07/2025 4:00 PM EST Office Visit [facility] [address] [place] [address] Name, MD Cody [address] [place] [address] documented as of this encounter Visit Diagnoses Not on filedocumented in this encounter Additional Health Concerns Assessment Noted Time PHQ-9 Depression Total Score: 12 025 4:18 PM EST documented as of this encounter Care Teams Feeder Catcher Tobacco Relationship Specialty Start Date End Date Name, MD Cody [address] [place] [address] PCP - General Family Medicine 07/31/18 documented as of this encounter
--- OUTSIDE RECORDS SUMMARY | 2025-06-05 18:52 | XMS_ITS | Encounter Summary ---
Author Organization [employer] Address 75 [facility] 7t [place] [address] Care Team Providers Care Fur Glazer Name Role Phone Name, Cody DOWNEY Primary Care Provider Reason for Visit * Reason Comments Med Refill Encounter Details Date Type Department Care Team ([facility] st Contact Info) Description 04/08/2025 Refill [facility] [address] [place], [place] [phone] Name, MD Cody [address] [place] [address] Social History Tobacco Use Types Packs/Day Years [...] Description 07/07/2025 4:00 PM EST Office Visit [facility] [address] [place] [address] Name, MD Cody [address] [place] [address] documented as of this encounter Visit Diagnoses Not on filedocumented in this encounter Additional Health Concerns Assessment Noted Time PHQ-9 Depression Total Score: 12 025 4:18 PM EST documented as of this encounter Care Teams Fur Glazer Relationship Specialty Start Date End Date Name, MD Cody [address] [place] [address] PCP - General Family Medicine 07/31/18 documented as of this encounter
--- OUTSIDE RECORDS SUMMARY | 2025-06-05 18:52 | XMS_ITS | Encounter Summary ---
Author Organization [employer] Address 75 [facility] 7t [place] [address] Care Team Providers Care Bull Driver Name Role Phone Name, Cody DOWNEY Primary Care Provider [phone] Reason for Visit * Reason Onset Date Comments Med Refill 04/15/2024 Encounter Details Date Type Department Care Team ([facility] st Contact Info) Description 04/15/2024 Telephone [facility] [address] [place], [place] [phone] Name, MD Cody [address] [place] [address] Med Refill Social History Tobacco Use Types [...] 7.5 MG tablet To be sent to: [facility] - [place], [place] - [address] documented in this encounter Plan of Treatment Upcoming Encounters Date Type Department Care Team (Late st Contact Info) Description 07/07/2025 4:00 PM EST Office Visit [facility] [address] [place] [address] Name, MD Cody [address] [place] [address] documented as of this encounter Visit Diagnoses Not on filedocumented in this encounter Additional Health Concerns Assessment Noted Time PHQ-9 Depression Total Score: 24 024 9:20 AM EDT documented as of this encounter Care Teams Bull Driver Relationship Specialty Start Date End Date Name, MD Cody [address] [place] [address] PCP - General Family Medicine 07/31/18 documented as of this encounter
--- OUTSIDE RECORDS SUMMARY | 2025-06-05 18:52 | XMS_ITS | Encounter Summary ---
Author Organization [employer] Address 75 [facility] 7t [place] [address] Care Team Providers Care Escrow Representative Name Role Phone Name, Cody DOWNEY Primary Care Provider Reason for Visit * Reason Comments Med Refill Encounter Details Date Type Department Care Team ([facility] st Contact Info) Description 09/28/2023 Refill [facility] [address] [place], [place] [phone] Laurel Roberts ANP [address] [place], [place] [phone] Vitamin D deficiency Social History Tobacco Use [...] Description 07/07/2025 4:00 PM EST Office Visit [facility] [address] [place] [address] Name, MD Cody [address] [place] [address] documented as of this encounter Visit Diagnoses Diagnosis Vitamin D deficiency documented in this encounter Additional Health Concerns Assessment Noted Time PHQ-9 Depression Total Score: 0 01/11/20 23 1:41 PM EDT documented as of this encounter Care Teams Escrow Representative Relationship Specialty Start Date End Date Name, MD Cody [address] [place] [address] PCP - General Family Medicine 07/31/18 documented as of this encounter
--- OUTSIDE RECORDS SUMMARY | 2025-06-05 18:52 | XMS_ITS | Encounter Summary ---
Author Organization [employer] Address 75 [facility] 7t [place] [address] Care Team Providers Care Wheat Inspector Name Role Phone Name, Cody DOWNEY Primary Care Provider [phone] Encounter Details Date Type Department Care Team (Latest Contact Info) Description 06/05/2025 Travel Social History Tobacco Use Types Packs/Day [...] Description 07/07/2025 4:00 PM EST Office Visit [facility] [address] [place] [address] Name, MD Cody [address] [place] [address] documented as of this encounter Visit Diagnoses Not on filedocumented in this encounter Additional Health Concerns Assessment Noted Time PHQ-9 Depression Total Score: 12 025 4:18 PM EST documented as of this encounter Care Teams Wheat Inspector Relationship Specialty Start Date End Date Name, MD Cody [address] [place] [address] PCP - General Family Medicine 07/31/18 documented as of this encounter
--- OUTSIDE RECORDS SUMMARY | 2025-06-05 18:52 | XMS_ITS | Encounter Summary ---
Author Organization [employer] Address 75 [facility] 7t [place] [address] Care Team Providers Care Notereader Name Role Phone Name, Cody DOWNEY Primary Care Provider [phone] Reason for Visit * Reason Onset Date Comments Med Refill 04/22/2024 Encounter Details Date Type Department Care Team ([facility] st Contact Info) Description 04/22/2024 Telephone [facility] [address] [place], [place] [phone] Name, MD Cody [address] [place] [address] Med Refill Social History Tobacco Use Types [...] 1:34 PM EDT Medication was sent to [facility] on 03/18/24 with 3 refills. * Telephone Encounter - Chaim Farfan - 04/22/2024 1:31 PM EDT TC from pt requesting medication refill. Medications needing refill : Trulicity 1.5 MG/0.5ML solution pen-injector To be sent to: [facility] - [place], [place] - [address] documented in this encounter Plan of Treatment Upcoming Encounters Date Type Department Care Team (Late st Contact Info) Description 07/07/2025 4:00 PM EST Office Visit [facility] [address] [place] [address] Name, MD Cody [address] [place] [address] documented as of this encounter Visit Diagnoses Not on filedocumented in this encounter Additional Health Concerns Assessment Noted Time PHQ-9 Depression Total Score: 24 024 9:20 AM EDT documented as of this encounter Care Teams Notereader Relationship Specialty Start Date End Date Name, MD Cody [address] [place] [address] PCP - General Family Medicine 07/31/18 documented as of this encounter
== END 2025-06-05 17:58 | disposition home or self-care (01) ==
LOC: HO.HHCLNP 17:57
PROVIDERS: Visit Provider Family Medicine
DX: N39.0 Urinary tract infection, site not specified (principal)
CPT/HCPCS: 87086; 87088; 87186